=== PATIENT | male | born 1980 | race Caucasian/White ===

== ENCOUNTER 2018-08-21 14:25 | Emergency (ER) | payer MEDICAID, OTHER ==
[2018-08-21] MEDS ORDERED: Sodium Chloride 0.9% 1000 ML 1,000 ML IV STA (16:00)
[2018-08-21] MEDS ORDERED: TORAdol 30 mg Injection IV ONE (16:00)
--- NOTE | 2018-08-21 16:04 | ERPHSYRPT ---
- History of Present Illness Time Seen by Provider: 08/21/18 15:55 Historian: patient Exam Limitations: no limitations Patient Subjective Stated Complaint: STATES STARTED HAVING PAIN IN RIGHT LOWER BACK RADIATING AROUND TO ABD. 8/10 IN PAIN, SHARP CONSTANT PAIN. BOWEL MOVEMENTS NORMAL LAST 08/20/18, NO CHANGES IF URINE. pt states he called Dr Wells ' office and they told him to get checked out in the ER Triage Nursing Assessment: pt c/o severe back pain in right lower back radiating to abdomen. A/O, skin warm and dry, denies injury to back. denies urinary or bowel diff. appetite adequate. Physician History: 38-year-old white male arrives with complaint of pain in his right flank described as sharp severe symptoms since 10:30 this morning. Patient without nausea vomiting the patient without any urinary symptoms. Past medical history negative. Past surgical history negative Timing/Duration: today Activities at Onset: none Quality: sharpness Abdominal Pain Onset Location: RUQ, flank (right flank) Pain Radiation: no radiation Associated Symptoms: back (right flank pain) Previous symptoms: no prior history Allergies/Adverse Reactions: No Known Drug Allergies Allergy (Verified 03/01/16 15:45) Hx Tetanus, Diphtheria Vaccination/Date Given: Yes Hx Influenza Vaccination/Date Given: No Hx Pneumococcal Vaccination/Date Given: No Immunizations Up to Date: Yes - Review of Systems Constitutional: No Fever, No Chills Eyes: No Symptoms Ears, Nose, & Throat: No Symptoms Respiratory: No Cough, No Dyspnea Cardiac: No Chest Pain, No Edema, No Syncope Abdominal/Gastrointestinal: No Abdominal Pain, No Nausea, No Vomiting, No Diarrhea Genitourinary Symptoms: Flank Pain (right flank pain) Musculoskeletal: No Back Pain, No Neck Pain Skin: No Rash Neurological: No Dizziness, No Focal Weakness, No Sensory Changes Psychological: No Symptoms Endocrine: No Symptoms All Other Systems: Reviewed and Negative - Past Medical History Pertinent Past Medical History: Yes Neurological History: No Pertinent History ENT History: No Pertinent History Cardiac History: No Pertinent History Respiratory History: No Pertinent History Endocrine Medical History: No Pertinent History Musculoskeletal History: No Pertinent History GI Medical History: No Pertinent History History: No Pertinent History Psycho-Social History: Depression Male Reproductive Disorders: No Pertinent History - Past Surgical History Past Surgical History: No Neuro Surgical History: No Pertinent History Cardiac: No Pertinent History Respiratory: No Pertinent History Gastrointestinal: No Pertinent History Genitourinary: No Pertinent History Musculoskeletal: No Pertinent History Male Surgical History: No Pertinent History - Social History Smoking Status: Current every day smoker How long have you smoked: 24 Exposure to second hand smoke: Yes Drug Use: none Patient Lives Alone: No - Nursing Vital Signs Nursing Vital Signs: Initial Vital Signs Temperature 97.4 F 08/21/18 14:25 Pulse Rate 65 08/21/18 14:25 Respiratory Rate 18 08/21/18 14:25 Blood Pressure 116/79 08/21/18 14:25 O2 Sat by Pulse Oximetry 98 08/21/18 14:25 Pain Scale Pain Intensity [] 8 Pain Intensity 6 - Physical Exam General Appearance: no apparent distress, alert Eye Exam: PERRL/EOMI, eyes nml inspection Ears, Nose, Throat Exam: normal ENT inspection, pharynx normal, moist mucous membranes Neck Exam: normal inspection, non-tender, supple, full range of motion Respiratory Exam: normal breath sounds, lungs clear, No respiratory distress Cardiovascular Exam: regular rate/rhythm ( admitted in her hit her), normal heart sounds, capillary refill <2 sec Gastrointestinal/Abdomen Exam: soft, No tenderness, No mass Back Exam: normal inspection, normal range of motion, No CVA tenderness, No vertebral tenderness Extremity Exam: normal inspection, normal range of motion, pelvis stable Neurologic Exam: alert, oriented x 3, cooperative, 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 Kidneys appear of normal size and revealed no definite mass, hydronephrosis, or renal calculi. No evidence of hydroureter or ureteral calculi. No obstructive uropathy is seen. The urinary bladder is only minimally distended but no calcification is seen within it to. The appendix appears unremarkable. 3. Some mild concentric distal thoracic esophageal wall thickening. Consider GERD or esophagitis.or. Mild scattered colonic stool retention seen without evidence of bowel obstruction no free air or fluid is seen.) Ordered Tests: Active Orders 24 hr Category Date Time Status IV Insertion STAT Care 08/21/18 16:00 Active ABDOMEN AND PELVIS W/0 CONTRAS [CT] Stat Exams 08/21/18 16:01 Completed AMYLASE Stat Lab 08/21/18 16:14 Completed CBC W DIFF Stat Lab 08/21/18 16:14 Completed CMP Stat Lab 08/21/18 16:14 Completed LIPASE Stat Lab 08/21/18 16:14 Completed UA W/RFX UR CULTURE Stat Lab 08/21/18 16:15 Completed Medication Summary Discontinued Medications Generic Name Dose Route Start Last Admin Trade Name Freq PRN Reason Stop Dose Admin Sodium Chloride 1,000 mls @ 999 mls/hr 08/21/18 16:00 08/21/18 17:32 Sodium Chloride 0.9% 1000 Ml IV 08/21/18 17:00 Infused .Q1H1M STA Infusion Sodium Chloride Confirm 08/21/18 16:28 Sodium Chloride 0.9% 1000 Ml Administered 08/21/18 16:29 Dose 1,000 mls @ ud .ROUTE .STK-MED ONE Ketorolac Tromethamine 30 mg 08/21/18 16:00 08/21/18 16:32 Toradol 30 Mg Injection IV 08/21/18 16:01 30 mg STAT ONE Administration Ketorolac Tromethamine Confirm 08/21/18 16:28 Toradol 30 Mg Injection Administered 08/21/18 16:29 Dose 30 mg .ROUTE .STK-MED ONE Lab/Rad Data: Laboratory Result Diagrams 08/21/18 16:14 08/21/18 16:14 Laboratory Results 08/21/18 08/21/18 08/21/18 Range/Units 16:15 16:14 16:14 WBC 6.8 (4.0-10.5) K/mm3 RBC 4.69 (4.1-5.6) M/mm3 Hgb 14.8 (12.5-18.0) gm/dl Hct 43.9 (42-50) % MCV 93.6 (78-100) fl MCH 31.6 (26-32) pg MCHC 33.7 (32-36) g/dl RDW 13.2 (11.5-14.0) % Plt Count 188 (150-450) K/mm3 MPV 11.2 H (6-9.5) fl Gran % 51.6 (36.0-66.0) % Eos # (Auto) 0.31 (0-0.5) Absolute Lymphs (auto) 2.49 (1.0-4.6) Absolute Monos (auto) 0.43 (0.0-1.3) Lymphocytes % 36.8 (24.0-44.0) % Monocytes % 6.4 (0.0-12.0) % Eosinophils % 4.6 (0.00-5.0) % Basophils % 0.6 (0.0-0.4) % Absolute Granulocytes 3.50 (1.4-6.9) Basophils # 0.04 (0-0.4) Sodium 139 (137-145) mmol/L Potassium 4.1 (3.5-5.1) mmol/L Chloride 104 (98-107) mmol/L Carbon Dioxide 30 (22-30) mmol/L Anion Gap 9.4 (5-15) MEQ/L BUN 16 (9-20) mg/dL Creatinine 1.00 (0.66-1.25) mg/dL Estimated GFR > 60.0 ML/MIN Glucose 88 (74-106) mg/dL Calcium 9.5 (8.4-10.2) mg/dL Total Bilirubin 0.30 (0.2-1.3) mg/dL AST 24 (17-59) U/L ALT 23 (0-50) U/L Alkaline Phosphatase 82 (38-126) U/L Serum Total Protein 7.3 (6.3-8.2) g/dL Albumin 4.0 (3.5-5.0) g/dL Amylase 71 (30-110) U/L Lipase 33 (23-300) U/L Urine Color YELLOW (YELLOW) Urine Appearance CLEAR (CLEAR) Urine pH 5.0 (5-6) Ur Specific [place] 1.023 (1.005-1.025) Urine Protein NEGATIVE (Negative) Urine Ketones NEGATIVE (NEGATIVE) Urine Blood NEGATIVE (0-5) Tyler/ul Urine Nitrite NEGATIVE (NEGATIVE) Urine Bilirubin NEGATIVE (NEGATIVE) Urine Urobilinogen NEGATIVE (0-1) mg/dL Ur Leukocyte Esterase NEGATIVE (NEGATIVE) Urine WBC (Auto) 3-5 (0-5) /HPF Urine RBC (Auto) NONE (0-2) /HPF U Epithel Cells (Auto) NONE (FEW) /HPF Urine Bacteria (Auto) NONE (NEGATIVE) /HPF Urine Mucus (Auto) SLIGHT (NEGATIVE) /HPF Urine Culture Reflexed NO (NO) Urine Glucose NEGATIVE (NEGATIVE) mg/dL - Progress Progress: improved Progress Note: 08/21/18 17:4 Patient given Toradol IV, IV normal saline. Patient continue to complain of pain in her right flank right upper quadrant. CT of the abdomen and pelvis was obtained. Impression 1. Kidneys are of normal size and revealed no definite mass, hydronephrosis or renal calculi. There are no evidence of hydroureter or ureteral calculi, obstructive uropathy is seen the urinary bladder is only minimally distended but no calcification is seen with a 2. The appendix appears unremarkable, there is some mild concentric distal thoracic esophageal wall thickening consider GERD or esophagitis. There is mild scattered colonic stool retention without evidence of bowel obstruction no free air or fluid is seen Patient states that he did not get much relief with Toradol Will give patient [place] 5 325 2 tablets orally. And send patient home. Patient to drink plenty of fluids clear fluids only 24-48 hours if abdominal pain. Will write for a small amount of [place] patient may also take Motrin as needed for pain. Patient followup with his family symptoms are worse, no better in 48 hours or, or persist longer than one week. . - Departure Departure Disposition: Home Clinical Impression: Right flank pain, Right upper quadrant abdominal pain Condition: Fair Critical Care Time: No Referrals: EMERITA WELLS MD [Primary Care Provider] - Additional Instructions: Return home. [place] as prescribed. Advil every 6 hours as needed for pain as well. Clear fluids only 24-48 hours if abdominal pain, plenty of fluids. Followup with your family symptoms are worse, no better in 48 hours, or persist longer than one week. Return for acute distress or for severe symptoms. Prescriptions: Hydrocodone/APAP 5-325 Tab^^^ [[place] 5-325 Tablet^^^] 1 tab PO Q6HPRN PRN #10 tablet MDD 6 PRN Reason: Pain
[2018-08-21 16:21] LABS: BASOPHIL % 0.6 % (0.0-0.4); Basophil (Absolute #) 0.04 (0-0.4); Eosinophil % 4.6 % (0.00-5.0); Eosinophil (Absolute #) 0.31 (0-0.5); Granulocytes % 51.6 % (36.0-66.0); Hematocrit 43.9 % (42-50); Hemoglobin 14.8 gm/dl (12.5-18.0); Lymphocyte (Absolute #) 2.49 (1.0-4.6); Lymphocytes % 36.8 % (24.0-44.0); Mean Cell Volume 93.6 fl (78-100); Mean Corpuscular Hemoglobin 31.6 pg (26-32); Mean Corpuscular Hgb Concent. 33.7 g/dl (32-36); Mean Platelet Volume 11.2 fl (6-9.5); Monocyte (Absolute #) 0.43 (0.0-1.3); Monocytes % 6.4 % (0.0-12.0); Platelet Count 188 K/mm3 (150-450); Red Blood Count 4.69 M/mm3 (4.1-5.6); Red Cell Distribution Width 13.2 % (11.5-14.0); White Blood Count 6.8 K/mm3 (4.0-10.5)
[2018-08-21 16:26] LABS: Appearance CLEAR (CLEAR); Bilirubin NEGATIVE (NEGATIVE); Blood NEGATIVE Ery/ul (0-5); Glucose NEGATIVE (NEGATIVE); Ketones NEGATIVE (NEGATIVE); Leukocyte Esterase NEGATIVE (NEGATIVE); Mucus SLIGHT /HPF (NEGATIVE); Nitrite NEGATIVE (NEGATIVE); Protein,Urine Dip NEGATIVE (Negative); Specific Gravity 1.023 (1.005-1.025); Urobilinogen NEGATIVE mg/dL (0-1)
[2018-08-21] MEDS ORDERED: TORAdol 30 mg Injection ONE (16:28)
[2018-08-21] MEDS ORDERED: Sodium Chloride 0.9% 1000 ML 1,000 ML ONE (16:28)
[2018-08-21 16:32] LABS: ALKALINE PHOSPHATASE 82 U/L (38-126); AMYLASE 71 U/L (30-110); ANION GAP 9.4 MEQ/L (5-15); BLOOD UREA NITROGEN 16 mg/dL (9-20); CHLORIDE 104 mmol/L (98-107); Calcium 9.5 mg/dL (8.4-10.2); Carbon Dioxide 30 mmol/L (22-30); Glucose 88 mg/dL (74-106); LIPASE 33 U/L (23-300); Potassium 4.1 mmol/L (3.5-5.1); SGOT/AST 24 U/L (17-59); SGPT/ALT 23 U/L (0-50); SODIUM 139 mmol/L (137-145); Total Protein 7.3 g/dL (6.3-8.2)
--- NOTE | 2018-08-21 17:06 | XRAY ---
Exam: CT of the abdomen and pelvis without IV contrast from 08/21/2018. CTDI: 20.63 Comparison: CT of the abdomen and pelvis without IV contrast from 06/06/2014. Indication: 38-year-old male with right flank pain since this morning. Technique: Non-IV contrast axial images were obtained through the abdomen and pelvis. Reconstructed coronal and sagittal images were created and reviewed. Findings: The lung bases reveal minimal nonspecific posterior dependent atelectatic changes within both posterior lung sulci. Otherwise, the lung bases appear clear. Incidentally, there appears to be some mild concentric thickening of the distal thoracic esophageal wall. For example, see axial images #8 through #11. Correlate clinically regarding esophagitis or GERD. I do not see a definite hiatal hernia. Assessment of the solid organs is mildly limited without the use of IV contrast. However, this exam was performed because of right flank pain. The kidneys appear of normal size and shape. No definite renal mass, hydronephrosis, or renal calculi are seen. No perinephric stranding is seen. The ureters appear of normal diameter and reveal no ureterolith. The urinary bladder is only minimally distended, but reveals no calcification within it. The liver, spleen, pancreas, and adrenal glands appear unremarkable. The gallbladder is distended and reveals no definite wall thickening or dense calcification within it. No intrahepatic biliary duct distention is seen. The abdominal aorta is of normal diameter without aneurysm. No abnormal retroperitoneal lymphadenopathy is seen. There is no free intraperitoneal air or ventral abdominal wall hernia. The appendix within the right lower quadrant appears unremarkable without surrounding inflammation. No abnormal bowel distention or bowel obstruction is seen. Some scattered stool is seen throughout the colon. No pelvic mass or abnormal pelvic lymphadenopathy is seen. The seminal vesicles appear unremarkable. Prostate gland contains a minimal calcification within it. Some small postinflammatory lymph nodes are seen within each groin. The skeleton reveals no acute fracture or other aggressive bone lesion. Impression: 1. The kidneys appear of normal size and reveal no definite mass, hydronephrosis, or renal calculi. Furthermore, I see no evidence of hydroureter or ureteral calculi. No obstructive uropathy is seen. The urinary bladder is only minimally distended, but no calcification is seen within it. 2. The appendix appears unremarkable. 3. I see some mild concentric distal thoracic esophageal wall thickening. Consider GERD or esophagitis. See axial images #8 through #11 of series #3. 4. Mild scattered colonic stool retention is seen without evidence of bowel obstruction. No free air or free fluid is seen.
[2018-08-21] MEDS ORDERED: NORCO 5/325 MG PO ONE (17:46)
[2018-08-21] MEDS ORDERED: NORCO 5/325 MG ONE (17:50)
[2018-08-21 17:53] VITALS: O2SAT 98
[2018-08-21 17:54] VITALS: BP 117/88; PULSE 60
== END 2018-08-21 18:10 | disposition home or self-care (01) ==
LOC: ED 14:25
DX: R10.11 Right upper quadrant pain (principal)
CPT/HCPCS: 36415; 74176; 80053; 81001; 82150; 83690; 85025; 96360; 96374; 99284; J1885; A9270-GY

== ENCOUNTER 2018-12-20 00:59 | Emergency (ER) | payer MEDICAID ==
--- NOTE | 2018-12-20 01:49 | ERPHSYRPT ---
- History of Present Illness Time Seen by Provider: 12/20/18 01:20 Source: patient, family Exam Limitations: no limitations Patient Subjective Stated Complaint: pt c/o rt elbow pain that has been going on x2 weeks, c/o rt elbow being sore, can't stand any pressure on it Triage Nursing Assessment: pt c/o rt elbow pain x2 weeks. No redness or edema noted to area. 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 Pulses present, pt able to move it without diff. Lungs clear, heart tones reg, abd soft with active bs x4 quad, non-tender. Physician History: 38 y/o right handed white male presents with inner right elbow pain for 2 weeks. no trauma. 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 this past weekend, pt was off work but pain did not improve. pt has an appt to see dr. hernandes tomorrow. 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) Quality: aching, burning Severity of Pain-Max: moderate Severity of Pain-Current: moderate Extremities Pain Location: elbow: right Modifying Factors: Improves With: movement Associated Symptoms: none Allergies/Adverse Reactions: No Known Drug Allergies Allergy (Verified 03/01/16 15:45) Hx Tetanus, Diphtheria Vaccination/Date Given: Yes Hx Influenza Vaccination/Date Given: No Hx Pneumococcal Vaccination/Date Given: No Immunizations Up to Date: Yes - Review of Systems Constitutional: No Symptoms Eyes: No Symptoms Ears, Nose, & Throat: No Symptoms Respiratory: No Symptoms Cardiac: No Symptoms Abdominal/Gastrointestinal: No Symptoms Genitourinary Symptoms: No Symptoms Musculoskeletal: Injury, Joint Pain (right elbow) Skin: No Symptoms Neurological: No Symptoms Psychological: No Symptoms Endocrine: No Symptoms Hematologic/Lymphatic: No Symptoms Immunological/Allergic: No Symptoms All Other Systems: Reviewed and Negative - Past Medical History Pertinent Past Medical History: Yes Neurological History: No Pertinent History ENT History: No Pertinent History Cardiac History: No Pertinent History Respiratory History: No Pertinent History Endocrine Medical History: No Pertinent History Musculoskeletal History: Fractures GI Medical History: No Pertinent History History: No Pertinent History Psycho-Social History: No Pertinent History Male Reproductive Disorders: No Pertinent History Other Medical History: fx rt wrist and forearm, casted - Past Surgical History Past Surgical History: No Neuro Surgical History: No Pertinent History Cardiac: No Pertinent History Respiratory: No Pertinent History Gastrointestinal: No Pertinent History Genitourinary: No Pertinent History Musculoskeletal: No Pertinent History Male Surgical History: No Pertinent History - Social History Smoking Status: Current every day smoker How long have you smoked: 25 yrs Exposure to second hand smoke: Yes Drug Use: none Patient Lives Alone: No - Nursing Vital Signs Nursing Vital Signs: Initial Vital Signs Temperature 97.7 F 12/20/18 01:04 Pulse Rate 65 12/20/18 01:04 Respiratory Rate 20 12/20/18 01:04 Blood Pressure 134/84 12/20/18 01:04 O2 Sat by Pulse Oximetry 97 12/20/18 01:04 Pain Scale Pain Intensity 10 - Physical Exam General Appearance: mild distress, alert, anxiety Eyes, Ears, Nose, Throat Exam: normal ENT inspection, moist mucous membranes Neck Exam: normal inspection, non-tender, supple, full range of motion Cardiovascular/Respiratory Exam: chest non-tender Abdominal Exam: non-tender Back Exam: normal inspection, normal range of motion, No CVA tenderness, No vertebral tenderness Shoulder Exam: normal inspection, non-tender, no evidence of injury, normal ROM Elbow/Forearm Exam: normal inspection, no evidence of injury, normal ROM, bone tenderness (right), soft tissue tenderness Wrist Exam: normal inspection, non-tender, no evidence of injury, normal ROM Hand Exam: normal inspection, non-tender, no evidence of injury, normal ROM Neuro/Tendon Exam: normal sensation, normal motor functions, normal tendon functions, responds to pain, no evidence tendon injury Mental Status Exam: alert, oriented x 3, cooperative Skin Exam: normal color, warm, dry SpO2 Interpretation: normal SpO2: 97 O2 Delivery: Room Air - Course Nursing assessment & vital signs reviewed: Yes Ordered Tests: Active Orders 24 hr Category Date Time Status ELBOW (MINIMUM 3 VIEWS) Stat Exams 12/20/18 Ordered - Progress Progress: unchanged Progress Note: 12/20/18 01:49 xray right elbow no acute fx or dislocation Counseled pt/family regarding: diagnosis, need for follow-up, rad results - Departure Departure Disposition: Home Clinical Impression: Right elbow pain Condition: Stable Critical Care Time: No Referrals: EMERITA HERNANDES MD [Primary Care Provider] - Additional Instructions: ice pack 3 times daily for 3 days. stop tree trimming/cutting until after seen by dr. hernandes Prescriptions: Prednisone 10 mg [Deltasone 10 mg] 10 mg PO TID #12 tablet Tramadol HCl 50 mg [Ultram 50 mg] 50 mg PO TID PRN #15 tablet PRN Reason: Pain
[2018-12-20] MEDS ORDERED: PERCOCET TABLET 5/325MG PO STA (01:52)
[2018-12-20] MEDS ORDERED: DELTASONE 10 MG PO ONE (01:53)
[2018-12-20] MEDS ORDERED: DELTASONE 20 MG ONE (01:55)
[2018-12-20] MEDS ORDERED: PERCOCET TABLET 5/325MG ONE (01:55)
[2018-12-20 02:02] VITALS: BP 123/79; PULSE 60; O2SAT 98
--- NOTE | 2018-12-20 08:37 | XRAY ---
Indication: Pain. Overuse injury. Comparison: None 3 views of the right elbow obtained. No bony, articular, or soft tissue abnormalities.
== END 2018-12-20 02:15 | disposition home or self-care (01) ==
LOC: ED 00:59
DX: M25.521 Pain in right elbow (principal)
CPT/HCPCS: 73080; 99283; A9270-GY

== ENCOUNTER 2020-12-29 23:20 | Emergency (ER) | payer SELFPAY ==
[2020-12-29] MEDS ORDERED: TORAdol 30 mg Injection IM ONE (23:38)
[2020-12-29] MEDS ORDERED: Augmentin 875-125 Tablet PO STA (23:39)
[2020-12-29 23:40] VITALS: O2SAT 98
[2020-12-29] MEDS ORDERED: Augmentin 875-125 Tablet ONE (23:44)
[2020-12-29] MEDS ORDERED: TORAdol 30 mg Injection ONE (23:44)
[2020-12-30] MEDS ORDERED: NORCO 5/325 MG PO ONE (00:20)
--- NOTE | 2020-12-30 00:20 | ERPHSYRPT ---
- History of Present Illness Time Seen by Provider: 12/29/20 23:45 Source: patient Exam Limitations: no limitations Patient Subjective Stated Complaint: pt states "I was pushing down on my tooth and this sharp pain shot up my face." Triage Nursing Assessment: pt ambulated into the er; pt is axo x4; c/o toothache; pt states 5/10 to left lower jaw; pt states that pain radiates from jaw to head; pt has cavity to left lower back tooth; tooth is broken; hypertension Physician History: Patient is a 40-year-old male presents to our ED with complaints of dental pain. Patient states that he has a carious tooth left lower jaw. Patient states he was pushing on his tooth today and felt a sharp pain shoot into the left side of his head. Pain rated 5 out of 10. Pain is reproduced with percussion and palpation to the involved tooth. Patient has tried many [id number] remedies without resolution of pain. Symptoms are mild to moderate in intensity no trauma. No fever. No nausea or vomiting. Patient is otherwise healthy. Patient states that he has found a dentist at the [facility]. He will follow-up with his dentist in [place] tomorrow morning. Patient voices no other complaints at this time. Timing/Duration: today Severity: moderate Modifying Factors: Improves With: other (Percussion palpation and mastication in volving the left lower jaw molar) Associated Symptoms: denies symptoms Allergies/Adverse Reactions: No Known Drug Allergies Allergy (Verified 12/29/20 23:29) Hx Tetanus, Diphtheria Vaccination/Date Given: Yes Hx Influenza Vaccination/Date Given: No Hx Pneumococcal Vaccination/Date Given: No Travel Risk - International Travel Have you traveled outside of the country in past 3 weeks: No - Coronavirus Screening Are you exhibiting any of the following symptoms?: No Close contact with a COVID-19 positive Pt in past 14-21 Days: No - Vaccine Status Have you recieved a Covid-19 vaccination: No - Review of Systems Constitutional: No Symptoms, No Fever, No Chills Eyes: No Symptoms Ears, Nose, & Throat: No Symptoms Respiratory: No Symptoms, No Cough, No Dyspnea Cardiac: No Symptoms, No Chest Pain, No Edema, No Syncope Abdominal/Gastrointestinal: No Symptoms, No Abdominal Pain, No Nausea, No Vomiting, No Diarrhea Genitourinary Symptoms: No Symptoms, No Dysuria Musculoskeletal: No Symptoms, No Back Pain, No Neck Pain Skin: No Symptoms, No Rash Neurological: No Symptoms, No Dizziness, No Focal Weakness, No Sensory Changes Psychological: No Symptoms Endocrine: No Symptoms Hematologic/Lymphatic: No Symptoms Immunological/Allergic: No Symptoms All Other Systems: Reviewed and Negative - Past Medical History Pertinent Past Medical History: Yes Neurological History: No Pertinent History ENT History: No Pertinent History Cardiac History: No Pertinent History Respiratory History: No Pertinent History Endocrine Medical History: No Pertinent History Musculoskeletal History: Fractures GI Medical History: No Pertinent History History: No Pertinent History Psycho-Social History: Depression Male Reproductive Disorders: No Pertinent History Other Medical History: fx rt wrist and forearm, casted - Past Surgical History Past Surgical History: No Neuro Surgical History: No Pertinent History Cardiac: No Pertinent History Respiratory: No Pertinent History Gastrointestinal: No Pertinent History Genitourinary: No Pertinent History Musculoskeletal: No Pertinent History Male Surgical History: No Pertinent History - Social History Smoking Status: Smoker, status unknown How long have you smoked: 25 yrs Exposure to second hand smoke: Yes Drug Use: none Patient Lives Alone: No - Nursing Vital Signs Nursing Vital Signs: Initial Vital Signs Temperature 98.9 F 12/29/20 23:29 Pulse Rate 92 H 12/29/20 23:29 Respiratory Rate 18 12/29/20 23:29 Blood Pressure 158/98 12/29/20 23:29 O2 Sat by Pulse Oximetry 98 12/29/20 23:29 Pain Scale Pain Intensity 5 - Physical Exam General Appearance: no apparent distress, alert Eye Exam: PERRL/EOMI, eyes nml inspection Ears, Nose, Throat Exam: normal ENT inspection, TMs normal, pharynx normal, moist mucous membranes, other (Tooth #17 is carious. There is exposed pulp. There is swelling at the duration gingiva. It appears patient is developing a dental abscess at this location. Negative for Mike's angina. No sublingual masses. Uvula midline. No intraoral lesions. Patent airway. No trismus) Neck Exam: normal inspection, non-tender, supple, full range of motion Respiratory Exam: normal breath sounds, lungs clear, airway intact, No respiratory distress Cardiovascular Exam: regular rate/rhythm, normal heart sounds, normal peripheral pulses Gastrointestinal/Abdomen Exam: soft, normal bowel sounds, No tenderness, No mass Back Exam: normal inspection, normal range of motion, No CVA tenderness, No vertebral tenderness Extremity Exam: normal inspection, normal range of motion, pelvis stable Neurologic Exam: alert, oriented x 3, cooperative, normal mood/affect, sensation nml, No motor deficits Skin Exam: normal color, warm, dry, No rash Lymphatic Exam: No adenopathy SpO2 Interpretation: normal SpO2: 98 O2 Delivery: Room Air - Course Nursing assessment & vital signs reviewed: Yes Ordered Tests: Medication Summary Discontinued Medications Generic Name Dose Route Start Last Admin Trade Name Norman PRN Reason Stop Dose Admin Hydrocodone Bitart/Acetaminophen 4 tab 12/30/20 00:20 12/30/20 00:23 [place] 5/325 Mg PO 12/30/20 00:21 4 tab SENT HOME W/ PATIENT ONE Administration Hydrocodone Bitart/Acetaminophen Confirm 12/30/20 00:22 [place] 5/325 Mg Administered 12/30/20 00:23 Dose 4 tab .ROUTE .STK-MED ONE Amoxicillin/Clavulanate Potassium 875 mg 12/29/20 23:39 12/29/20 23:47 Augmentin 875-125 Tablet PO 12/29/20 23:40 875 mg ONCE STA Administration Amoxicillin/Clavulanate Potassium Confirm 12/29/20 23:44 Augmentin 875-125 Tablet Administered 12/29/20 23:45 Dose 875 mg .ROUTE .STK-MED ONE Ketorolac Tromethamine 60 mg 12/29/20 23:38 12/29/20 23:47 Toradol 30 Mg Injection IM 12/29/20 23:39 60 mg STAT ONE Administration Ketorolac Tromethamine Confirm 12/29/20 23:44 Toradol 30 Mg Injection Administered 12/29/20 23:45 Dose 60 mg .ROUTE .STK-MED ONE - Progress Progress: improved Progress Note: Patient received a dose of Toradol and Augmentin in our ED. A prescription for Toradol and Augmentin was forwarded to patient's pharmacy. Patient also recei marc 4 tabs of [place] fives. Patient will be following up at [facility] in [place] tomorrow morning. Patient states is ready for discharge. He voices no other complaints concerns at this time. No indication for further work-up. Will discharge home. Portions of this note were created with voice recognition technology. There may be grammatical, spelling, punctuation or sound alike errors 12/30/20 00:36 Counseled pt/family regarding: diagnosis, need for follow-up - Departure Departure Disposition: Home Clinical Impression: Tooth caries, Pain, dental, Dental abscess Condition: Stable Critical Care Time: No Referrals: DOCTOR,NO FAMILY [Primary Care Provider] - EVELIN CURRAN MD [ACTIVE STAFF] - Instructions: Tooth Decay, Adult, Tooth Abscess (DC) Additional Instructions: Discharge/Care Plan RANULFO RODRÍGUEZ JR was seen on 12/30/20 in the Emergency Room. The patient was counseled regarding Diagnosis,Lab results, Imaging studies, need for follow up and when to return to the Emergency Room. Prescriptions given: Discharge Note I have spoken with the patient and/or caregivers. I have explained the patient's condition, diagnosis and treatment plan based on the information available to me at this time. I have answered the patient's and/or caregiver's questions and addressed any concerns. The patient and/or caregivers have as good understanding of the patient's diagnosis, condition and treatment plan as can be expected at this point. The vital signs have been stable. The patient's condition is stable and appropriate for discharge from the emergency department. The patient will pursue further outpatient evaluation with the primary care physician or other designated or consulting physician as outlined in the discharge instructions. The patient and/or caregivers are agreeable to this plan of care and follow-up instructions have been explained in detail. The patient and/or caregivers have received these instruction. The patient/and or caregivers are aware that any significant change in condition or worsening of symptoms should prompt an immediate return to this or the closest emergency department or call 911. Prescriptions: Amox Tr/Potass Clav. 875 mg [Augmentin 875-125 Tablet] 1 tab PO BID 7 Days #14 tablet Ketorolac Tromethamine [Toradol] 10 mg PO TID 5 Days #15 tablet
[2020-12-30] MEDS ORDERED: NORCO 5/325 MG ONE (00:22)
[2020-12-30 00:24] VITALS: BP 152/102; PULSE 81
== END 2020-12-30 00:30 | disposition home or self-care (01) ==
LOC: ED 23:20
DX: K02.9 Dental caries, unspecified (principal); K04.7 Periapical abscess without sinus
CPT/HCPCS: 96372; 99283; J1885; A9270-GY

== ENCOUNTER 2021-09-13 10:22 | Emergency (ER) | payer SELFPAY ==
[2021-09-13 10:35] VITALS: O2SAT 99
--- NOTE | 2021-09-13 10:36 | ERPHSYRPT ---
- History of Present Illness Time Seen by Provider: 09/13/21 10:36 Historian: patient Exam Limitations: no limitations Patient Subjective Stated Complaint: to er c/o left flank pain. 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 pt denies any diff urinating. Reports nausea present though no vomiting Physician History: This is a 41-year-old white male who has no known history of nephrolithiasis or ureteral stones presents with sudden onset of left flank pain which radiates to the left lower back and left groin area. He states the pain is severe and has not let up. He has never had anything like this before. He has had nausea but no vomiting. He denies chest pain and he denies shortness of breath. He has had no fevers or chills. Timing/Duration: yesterday, day(s) (1), worse Activities at Onset: none Quality: sharpness, stabbing Abdominal Pain Onset Location: flank (Left flank) Pain Radiation: groin (Left), back (Left lower back) Severity of Pain-Max: moderate Severity of Pain-Current: moderate Modifying Factors: Improves With: nothing Associated Symptoms: loss of appetite, nausea, No chest pain, No fever/chills, No neck pain, No shortness of breath, No vomiting Previous symptoms: no prior history Allergies/Adverse Reactions: No Known Drug Allergies Allergy (Verified 12/29/20 23:29) Hx Tetanus, Diphtheria Vaccination/Date Given: Yes Hx Influenza Vaccination/Date Given: No Hx Pneumococcal Vaccination/Date Given: No Travel Risk - International Travel Have you traveled outside of the country in past 3 weeks: No - Coronavirus Screening Are you exhibiting any of the following symptoms?: No Close contact with a COVID-19 positive Pt in past 14-21 Days: No - Vaccine Status Have you recieved a Covid-19 vaccination: No - Review of Systems Constitutional: No Symptoms Eyes: No Symptoms Ears, Nose, & Throat: No Symptoms Respiratory: No Symptoms Cardiac: No Symptoms Abdominal/Gastrointestinal: Nausea, No Abdominal Pain, No Vomiting, No Diarrhea, No Constipation Genitourinary Symptoms: Flank Pain (Left) Musculoskeletal: No Symptoms Skin: No Symptoms Neurological: No Symptoms Psychological: No Symptoms Endocrine: No Symptoms Hematologic/Lymphatic: No Symptoms Immunological/Allergic: No Symptoms - Past Medical History Pertinent Past Medical History: Yes Neurological History: No Pertinent History ENT History: No Pertinent History Cardiac History: No Pertinent History Respiratory History: No Pertinent History Endocrine Medical History: No Pertinent History Musculoskeletal History: Fractures GI Medical History: No Pertinent History History: No Pertinent History Psycho-Social History: Depression Male Reproductive Disorders: No Pertinent History Other Medical History: fx rt wrist and forearm, casted - Past Surgical History Past Surgical History: No Neuro Surgical History: No Pertinent History Cardiac: No Pertinent History Respiratory: No Pertinent History Gastrointestinal: No Pertinent History Genitourinary: No Pertinent History Musculoskeletal: No Pertinent History Male Surgical History: No Pertinent History - Social History Smoking Status: Smoker, status unknown How long have you smoked: 25 yrs Exposure to second hand smoke: Yes Drug Use: none Patient Lives Alone: No - Nursing Vital Signs Nursing Vital Signs: Initial Vital Signs Temperature 97.9 F 09/13/21 10:30 Pulse Rate 77 09/13/21 10:30 Respiratory Rate 16 09/13/21 10:30 Blood Pressure 133/90 09/13/21 10:30 O2 Sat by Pulse Oximetry 99 09/13/21 10:30 Pain Scale Pain Intensity 0 - Physical Exam General Appearance: no apparent distress, alert, anxiety Eye Exam: PERRL/EOMI, eyes nml inspection Ears, Nose, Throat Exam: normal ENT inspection, moist mucous membranes Neck Exam: normal inspection, non-tender, supple, full range of motion Respiratory Exam: normal breath sounds, lungs clear, airway intact, No chest tenderness, No respiratory distress Cardiovascular Exam: regular rate/rhythm, normal heart sounds, normal peripheral pulses Gastrointestinal/Abdomen Exam: soft, normal bowel sounds, No tenderness Rectal Exam: not done Back Exam: normal inspection, normal range of motion, CVA tenderness (Left), No vertebral tenderness Extremity Exam: normal inspection, normal range of motion, pelvis stable Neurologic Exam: alert, oriented x 3, cooperative, coke inspector II-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 nml as tested, normal mood/affect, nml cerebellar function, nml station & gait, sensation nml Skin Exam: normal color, warm, dry Lymphatic Exam: No adenopathy SpO2 Interpretation: normal SpO2: 99 O2 Delivery: Room Air - Course Nursing assessment & vital signs reviewed: Yes Ordered Tests: Active Orders 24 hr Category Date Time Status IV Insertion STAT Care 09/13/21 10:37 Active ABDOMEN AND PELVIS W/0 CONTRAS [CT] Stat Exams 09/13/21 10:37 Completed AMYLASE Stat Lab 09/13/21 10:20 Completed CBC W DIFF Stat Lab 09/13/21 10:20 Completed CMP Stat Lab 09/13/21 10:20 Completed LIPASE Stat Lab 09/13/21 10:20 Completed UA W/RFX CULTURE Stat Lab 09/13/21 11:09 Completed Medication Summary Generic Name Dose Route Start Last Admin Trade Name Freq PRN Reason Stop Dose Admin Sodium Chloride 1,000 mls @ 999 mls/hr 09/13/21 10:37 09/13/21 10:41 Sodium Chloride 0.9% 1000 Ml IV 09/13/21 11:37 999 mls/hr .Q1H1M STA Administration Discontinued Medications Generic Name Dose Route Start Last Admin Trade Name Freq PRN Reason Stop Dose Admin Hydromorphone HCl 1 mg 09/13/21 10:37 09/13/21 10:40 Hydromorphone 1 Mg/1ml Inj 1 Mg/Ml Syringe IV 09/13/21 10:38 1 mg STAT ONE Administration Hydromorphone HCl Confirm 09/13/21 10:37 Hydromorphone 1 Mg/1ml Inj 1 Mg/Ml Syringe Administered 09/13/21 10:38 Dose 1 mg .ROUTE .STK-MED ONE Sodium Chloride Confirm 09/13/21 10:37 Sodium Chloride 0.9% 1000 Ml Administered 09/13/21 10:38 Dose 1,000 mls @ ud .ROUTE .STK-MED ONE Ketorolac Tromethamine 30 mg 09/13/21 10:37 09/13/21 10:41 Ketorolac Tromethamine 30 Mg/Ml Inj IV 09/13/21 10:38 30 mg STAT ONE Administration Ketorolac Tromethamine Confirm 09/13/21 10:37 Ketorolac Tromethamine 30 Mg/Ml Inj Administered 09/13/21 10:38 Dose 30 mg .ROUTE .STK-MED ONE Ondansetron HCl 4 mg 09/13/21 10:37 09/13/21 10:41 Ondansetron Hcl 4 Mg/2 Ml Vial IV 09/13/21 10:38 4 mg STAT ONE Administration Ondansetron HCl Confirm 09/13/21 10:37 Ondansetron Hcl 4 Mg/2 Ml Vial Administered 09/13/21 10:38 Dose 4 mg .ROUTE .K-MED ONE Lab/Rad Data: Laboratory Result Diagrams 09/13/21 10:20 09/13/21 10:20 Laboratory Results 09/13/21 09/13/21 09/13/21 Range/Units 11:09 10:20 10:20 WBC 6.8 (4.0-10.5) x10^3/uL RBC 5.03 (4.1-5.6) x10^6/uL Hgb 15.3 (12.5-18.0) g/dL Hct 44.9 (42-50) % MCV 89.3 (78-100) fL MCH 30.4 (26-32) pg MCHC 34.1 (32-36) g/dL RDW 12.7 (11.5-14.0) % Plt Count 228 (150-450) x10^3/uL MPV 11.3 H (7.5-11.0) fL Gran % 63.3 (36.0-66.0) % Immature Gran % (Auto) 0.1 (0.00-0.4) % Nucleat RBC Rel Count 0.0 (0.00-0.1) % Eos # (Auto) 0.26 (0-0.5) x10^3/uL Immature Gran # (Auto) 0.01 (0.00-0.03) x10^3u/L Absolute Lymphs (auto) 1.76 (1.0-4.6) x10^3/uL Absolute Monos (auto) 0.42 (0.0-1.3) x10^3/uL Absolute Nucleated RBC 0.00 (0.00-0.01) x10^3u/L Lymphocytes % 25.9 (24.0-44.0) % Monocytes % 6.2 (0.0-12.0) % Eosinophils % 3.8 (0.00-5.0) % Basophils % 0.7 (0.0-0.4) % Absolute Granulocytes 4.29 (1.4-6.9) x10^3/uL Basophils # 0.05 (0-0.4) x10^3/uL Sodium 137 (137-145) mmol/L Potassium 3.7 (3.5-5.1) mmol/L Chloride 103 (98-107) mmol/L Carbon Dioxide 24 (22-30) mmol/L Anion Gap 14.3 (5-15) MEQ/L BUN 15 (9-20) mg/dL Creatinine 0.88 (0.66-1.25) mg/dL Estimated GFR > 60.0 ML/MIN Glucose 142 H (74-106) mg/dL Calcium 9.7 (8.4-10.2) mg/dL Total Bilirubin 0.50 (0.2-1.3) mg/dL AST 29 (17-59) U/L ALT 24 (0-50) U/L Alkaline Phosphatase 88 (38-126) U/L Serum Total Protein 7.8 (6.3-8.2) g/dL Albumin 4.3 (3.5-5.0) g/dL Amylase 78 (30-110) U/L Lipase 35 (23-300) U/L Urinalys Dipstick Clnc MAIN LAB Urine Color YELLOW (YELLOW) Urine Appearance CLEAR (CLEAR) Urine pH 5.5 (5-6) Ur Specific Walker <=1.005 (1.005-1.025) POC Urine Protein Conf NEGATIVE (Negative) Urine Ketones NEGATIVE (NEGATIVE) Urine Nitrite NEGATIVE (NEGATIVE) Urine Bilirubin NEGATIVE (NEGATIVE) Urine Urobilinogen 0.2 (0-1) mg/dL Urine Leukocytes NEGATIVE (NEGATIVE) Urine WBC (Auto) 0-2 (0-5) /HPF Urine RBC (Auto) 0-2 (0-2) /HPF U Epithel Cells (Auto) RARE (FEW) /HPF Urine Bacteria (Auto) RARE (NEGATIVE) /HPF Urine RBC NEGATIVE (0-5) Tyler/ul Ur Culture Indicated? NO Urine Glucose NEGATIVE (NEGATIVE) mg/dL - Progress Progress: improved, pain not gone completely, re-examined Progress Note: 09/13/21 11:23 CAT scan of the abdomen and pelvis is negative for any renal calculus or obstr uctive uropathy. In addition, there is distal esophageal circumferential wall thickening concerning for reflux esophagitis. This was present on a CT scan of the abdomen pelvis in 2019. Today, I discussed this finding with him and he needs to follow-up with his primary care physician for further evaluation and management. There is also mild fecal stasis present. Counseled pt/family regarding: lab results, diagnosis, need for follow-up, rad results - Departure Departure Disposition: Home Clinical Impression: Constipation, Reflux esophagitis Condition: Stable Critical Care Time: No Referrals: DOCTOR,NO FAMILY [Primary Care Provider] - Follow up/PCP as directed Additional Instructions: Avoid fatty greasy spicy foods. Avoid nicotine and alcohol. Follow-up with your primary care provider for your further evaluation management of reflux esophagitis. Increase your fluid intake. Use [id number] MiraLAX to help with any constipation issues. Prescriptions: Hydrocodone/APAP 5/325 [Hayes 5/325 mg] 1 each PO Q12H PRN PRN #6 tablet MDD 2 PRN Reason: Pain Famotidine 20 mg [Pepcid 20 MG] 20 mg PO DAILY #10 tablet
[2021-09-13] MEDS ORDERED: Sodium Chloride 0.9% 1000 ML 1,000 ML IV STA (10:37)
[2021-09-13] MEDS ORDERED: Sodium Chloride 0.9% 1000 ML 1,000 ML ONE (10:37)
[2021-09-13] MEDS ORDERED: Hydromorphone 1 mg/ml Injection ONE (10:37)
[2021-09-13] MEDS ORDERED: Zofran 4 MG/2 ML VIAL IV ONE (10:37)
[2021-09-13] MEDS ORDERED: Zofran 4 MG/2 ML VIAL ONE (10:37)
[2021-09-13] MEDS ORDERED: TORAdol 30 mg Injection ONE (10:37)
[2021-09-13] MEDS ORDERED: TORAdol 30 mg Injection IV ONE (10:37)
[2021-09-13] MEDS ORDERED: Hydromorphone 1 mg/ml Injection IV ONE (10:37)
[2021-09-13 10:56] LABS: Absolute Neutrophil Ct (ANC) 4.29 x10^3/uL (1.4-6.9); Basophil (Absolute #) 0.05 x10^3/uL (0-0.4); Eosinophil % 3.8 % (0.00-5.0); Eosinophil (Absolute #) 0.26 x10^3/uL (0-0.5); Hematocrit 44.9 % (42-50); Hemoglobin 15.3 g/dL (12.5-18.0); Lymphocyte (Absolute #) 1.76 x10^3/uL (1.0-4.6); Lymphocytes % 25.9 % (24.0-44.0); Mean Cell Volume 89.3 fL (78-100); Mean Corpuscular Hemoglobin 30.4 pg (26-32); Mean Corpuscular Hgb Concent. 34.1 g/dL (32-36); Mean Platelet Volume 11.3 fL (7.5-11.0); Monocyte (Absolute #) 0.42 x10^3/uL (0.0-1.3); Monocytes % 6.2 % (0.0-12.0); Neutrophil % 63.3 % (36.0-66.0); Platelet Count 228 x10^3/uL (150-450); Red Blood Count 5.03 x10^6/uL (4.1-5.6); Red Cell Distribution Width 12.7 % (11.5-14.0); White Blood Count 6.8 x10^3/uL (4.0-10.5)
[2021-09-13 11:09] LABS: ALBUMIN 4.3 g/dL (3.5-5.0); ALKALINE PHOSPHATASE 88 U/L (38-126); AMYLASE 78 U/L (30-110); ANION GAP 14.3 MEQ/L (5-15); BLOOD UREA NITROGEN 15 mg/dL (9-20); CHLORIDE 103 mmol/L (98-107); Calcium 9.7 mg/dL (8.4-10.2); Carbon Dioxide 24 mmol/L (22-30); Creatinine 1 0.88 mg/dL (0.66-1.25); EST GLOMERULAR FILTRATION RATE > 60.0 ML/MIN; Glucose 142 mg/dL (74-106); LIPASE 35 U/L (23-300); Potassium 3.7 mmol/L (3.5-5.1); SGOT/AST 29 U/L (17-59); SGPT/ALT 24 U/L (0-50); SODIUM 137 mmol/L (137-145); Total Protein 7.8 g/dL (6.3-8.2)
[2021-09-13 11:11] LABS: Appearance CLEAR (CLEAR); Bilirubin NEGATIVE (NEGATIVE); Dipstick done @ ? MAIN LAB; Glucose NEGATIVE (NEGATIVE); Ketones NEGATIVE (NEGATIVE); Nitrite NEGATIVE (NEGATIVE); Ph 5.5 (5-6); Protein,Urine Dip NEGATIVE (Negative); RBC NEGATIVE Ery/ul (0-5); Specific Gravity <=1.005 (1.005-1.025); Urobilinogen 0.2 mg/dL (0-1)
--- NOTE | 2021-09-13 11:12 | XRAY ---
Indication: Left flank pain. Multiple contiguous axial images obtained through the abdomen and pelvis without contrast using renal stone protocol. Comparison: August 21, 2018. Lung bases again demonstrates minimal dependent atelectasis and tiny right base calcified granuloma. No infiltrate or effusion. Heart not enlarged. Distal esophagus again demonstrates circumferential wall thickening concerning for reflux esophagitis. Again no renal calculus or evidence for obstructive uropathy in either system. Stomach is distended with food/fluid. Noncontrasted stomach and bowel loops nonobstructed again with normal appendix. There is again mild diffuse scattered colonic fecal debris greatest in the right hemicolon. No free fluid/air. Remaining liver, gallbladder, pancreas, spleen, adrenal glands, kidneys, ureters, bladder, and aorta are unremarkable for noncontrast exam. Osseous structures intact. No ventral or inguinal hernias. Impression: 1. Continued negative renal calculus or evidence for obstructive uropathy. 2. Again distal esophageal circumferential wall thickening concerning for reflux esophagitis. 3. Again incidental mild diffuse fecal stasis.
[2021-09-13 11:18] LABS: Bacteria RARE /HPF (NEGATIVE); Epithelial Cells RARE /HPF (FEW); RBC 0-2 /HPF (0-2); Urine Cultured Indicated? NO; WBC 0-2 /HPF (0-5)
[2021-09-13 11:58] VITALS: BP 131/86; PULSE 65
[2021-09-13] MEDS ORDERED: PROTONIX 40 MG IV IV ONE ×2 (12:23)
== END 2021-09-13 12:33 | disposition home or self-care (01) ==
LOC: ED 10:22
DX: K59.00 Constipation, unspecified (principal); K21.00 Gastro-esophageal reflux disease with esophagitis, without bleeding; R10.9 Unspecified abdominal pain; R11.0 Nausea; Z72.0 Tobacco use; Z28.310 Unvaccinated for COVID-19; Z79.891 Long term (current) use of opiate analgesic
CPT/HCPCS: 36415; 74176; 80053; 81015; 82150; 83690; 85025; 96360; 96374; 96375; 99284; J1170; J1885; J2405

== ENCOUNTER 2021-11-11 23:28 | Observation (INO) | payer MEDICAID ==
[2021-11-11] MEDS ORDERED: Zofran 4 MG/2 ML VIAL IV ONE (23:41)
[2021-11-11] MEDS ORDERED: Sodium Chloride 0.9% 1000 ML 1,000 ML IV STA (23:41)
[2021-11-11] MEDS ORDERED: MORPHINE SULFATE 4 MG INJ IV ONE (23:41)
[2021-11-12 00:03] LABS: Absolute Neutrophil Ct (ANC) 5.95 x10^3/uL (1.4-6.9); Basophil (Absolute #) 0.06 x10^3/uL (0-0.4); Eosinophil % 3.9 % (0.00-5.0); Eosinophil (Absolute #) 0.35 x10^3/uL (0-0.5); Hematocrit 42.6 % (42-50); Hemoglobin 14.4 g/dL (12.5-18.0); Lymphocyte (Absolute #) 1.97 x10^3/uL (1.0-4.6); Lymphocytes % 21.9 % (24.0-44.0); Mean Cell Volume 90.3 fL (78-100); Mean Corpuscular Hemoglobin 30.5 pg (26-32); Mean Corpuscular Hgb Concent. 33.8 g/dL (32-36); Monocyte (Absolute #) 0.65 x10^3/uL (0.0-1.3); Monocytes % 7.2 % (0.0-12.0); Neutrophil % 66.1 % (36.0-66.0); Platelet Count 198 x10^3/uL (150-450); Red Blood Count 4.72 x10^6/uL (4.1-5.6); Red Cell Distribution Width 12.9 % (11.5-14.0)
[2021-11-12] MEDS ORDERED: Sodium Chloride 0.9% 1000 ML 1,000 ML ONE (00:12)
[2021-11-12] MEDS ORDERED: MORPHINE SULFATE 4 MG INJ ONE ×2 (00:12→02:47)
[2021-11-12] MEDS ORDERED: Zofran 4 MG/2 ML VIAL ONE (00:12)
[2021-11-12 00:21] LABS: ALBUMIN 3.6 g/dL (3.5-5.0); ALKALINE PHOSPHATASE 81 U/L (38-126); ANION GAP 9.3 MEQ/L (5-15); BLOOD UREA NITROGEN 9 mg/dL (9-20); CHLORIDE 103 mmol/L (98-107); Calcium 9.3 mg/dL (8.4-10.2); Carbon Dioxide 26 mmol/L (22-30); Creatinine 1 0.93 mg/dL (0.66-1.25); EST GLOMERULAR FILTRATION RATE > 60.0 ML/MIN; Glucose 113 mg/dL (74-106); LIPASE 47 U/L (23-300); Potassium 3.5 mmol/L (3.5-5.1); SGOT/AST 22 U/L (17-59); SGPT/ALT 19 U/L (0-50); SODIUM 135 mmol/L (137-145); Total Protein 6.6 g/dL (6.3-8.2)
[2021-11-12 00:28] LABS: Appearance CLEAR (CLEAR); Bilirubin NEGATIVE (NEGATIVE); Dipstick done @ ? MAIN LAB; Glucose NEGATIVE (NEGATIVE); Ketones NEGATIVE (NEGATIVE); Nitrite NEGATIVE (NEGATIVE); Ph 5.5 (5-6); Protein,Urine Dip NEGATIVE (Negative); RBC SMALL Ery/ul (0-5); Specific Gravity >=1.030 (1.005-1.025); Urobilinogen 0.2 mg/dL (0-1)
[2021-11-12 00:30] LABS: Bacteria RARE /HPF (NEGATIVE); Epithelial Cells RARE /HPF (FEW); Mucus MODERATE /HPF (NEGATIVE); RBC 0-2 /HPF (0-2)
[2021-11-12 00:31] LABS: Urine Cultured Indicated? NO
--- NOTE | 2021-11-12 00:37 | ERPHSYRPT ---
- History of Present Illness Time Seen by Provider: 11/11/21 23:40 Historian: patient Exam Limitations: no limitations Patient Subjective Stated Complaint: abd pain and diarrhea x2 days Triage Nursing Assessment: pt c/o abd pain and diarrhea x2 days. Pt has upper abd pain across the abd, lower abd pain across the abd and pain to left side of abd. Pt also has left flank pain, describes pain as stabbing. Pt's abd firm with active bs x4 quad, tender on palpation. Physician History: Patient is a 41-year-old male presents to emergency department for evaluation of abdominal pain and diarrhea x2 days. Patient describes his pain as ache that is generalized across the abdomen. No associated trauma. No fever. No nausea or vomiting. Diarrhea is watery. Symptoms are mild to moderate in intensity. No specific worsening improving factors. Patient denies a history of the same. Patient voices no other complaints or concerns at this time. Portions of this note were created with voice recognition technology. There may be grammatical, spelling, punctuation or sound alike errors Timing/Duration: day(s) (2 days) Activities at Onset: none Quality: aching Abdominal Pain Onset Location: generalized abdomen Pain Radiation: no radiation Severity of Pain-Max: moderate Severity of Pain-Current: mild Modifying Factors: Improves With: nothing Associated Symptoms: diarrhea Previous symptoms: no prior history Allergies/Adverse Reactions: No Known Drug Allergies Allergy (Verified 11/11/21 23:43) Home Medications: No Reportable Medications [No Reported Medications] 11/11/21 [History] Hx Tetanus, Diphtheria Vaccination/Date Given: Yes Hx Influenza Vaccination/Date Given: No Hx Pneumococcal Vaccination/Date Given: No Immunizations Up to Date: Yes Travel Risk - International Travel Have you traveled outside of the country in past 3 weeks: No - Coronavirus Screening Are you exhibiting any of the following symptoms?: Yes Symptoms: Vomiting/Diarrhea, Headaches/Body Aches/Fatigue Close contact with a COVID-19 positive Pt in past 14-21 Days: No - Vaccine Status Have you recieved a Covid-19 vaccination: Yes 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 - Review of Systems Constitutional: No Symptoms, No Fever, No Chills Eyes: No Symptoms Ears, Nose, & Throat: No Symptoms Respiratory: No Symptoms, No Cough, No Dyspnea Cardiac: No Symptoms, No Chest Pain, No Edema, No Syncope Abdominal/Gastrointestinal: No Symptoms, No Abdominal Pain, No Nausea, No Vomiting, No Diarrhea Genitourinary Symptoms: No Symptoms, No Dysuria Musculoskeletal: No Symptoms, No Back Pain, No Neck Pain Skin: No Symptoms, No Rash Neurological: No Symptoms, No Dizziness, No Focal Weakness, No Sensory Changes Psychological: No Symptoms Endocrine: No Symptoms Hematologic/Lymphatic: No Symptoms Immunological/Allergic: No Symptoms All Other Systems: Reviewed and Negative - Past Medical History Pertinent Past Medical History: Yes Neurological History: No Pertinent History ENT History: No Pertinent History Cardiac History: No Pertinent History Respiratory History: No Pertinent History Endocrine Medical History: No Pertinent History Musculoskeletal History: Fractures GI Medical History: No Pertinent History History: No Pertinent History Psycho-Social History: Depression Male Reproductive Disorders: No Pertinent History Other Medical History: fx rt wrist and forearm, casted - Past Surgical History Past Surgical History: No Neuro Surgical History: No Pertinent History Cardiac: No Pertinent History Respiratory: No Pertinent History Gastrointestinal: No Pertinent History Genitourinary: No Pertinent History Musculoskeletal: No Pertinent History Male Surgical History: No Pertinent History - Social History Smoking Status: Current every day smoker How long have you smoked: 29 yrs Exposure to second hand smoke: Yes Drug Use: none Patient Lives Alone: No - Nursing Vital Signs Nursing Vital Signs: Initial Vital Signs Temperature 97.7 F 11/11/21 23:31 Pulse Rate 84 11/11/21 23:31 Respiratory Rate 18 11/11/21 23:31 Blood Pressure 118/87 11/11/21 23:31 O2 Sat by Pulse Oximetry 98 11/11/21 23:31 Pain Scale Pain Intensity 5 - Physical Exam General Appearance: no apparent distress, alert Eye Exam: PERRL/EOMI, eyes nml inspection Ears, Nose, Throat Exam: normal ENT inspection, pharynx normal, moist mucous membranes Neck Exam: normal inspection, non-tender, supple, full range of motion Respiratory Exam: normal breath sounds, lungs clear, airway intact, No respiratory distress Cardiovascular Exam: regular rate/rhythm, normal heart sounds Gastrointestinal/Abdomen Exam: soft, tenderness, other (Diffuse abdominal tenderness.), No normal bowel sounds, No distention, No mass, No guarding, No organomegaly, No splenomegaly Back Exam: normal inspection, normal range of motion, No CVA tenderness, No vertebral tenderness Extremity Exam: normal inspection, normal range of motion, pelvis stable Neurologic Exam: alert, oriented x 3, cooperative, normal mood/affect, nml cerebellar function, sensation nml, No motor deficits Skin Exam: normal color, warm, dry SpO2 Interpretation: normal SpO2: 98 O2 Delivery: Room Air - Course Nursing assessment & vital signs reviewed: Yes - CT Exams Abdomen/Pelvis CT Interpretation: Tele-radiologist Report (Bowel wall thickening of the colon with surrounding edema. Minimal atherosclerotic disease. Colitis) Ordered Tests: Active Orders 24 hr Category Date Time Status IV Insertion STAT Care 11/11/21 23:41 Active CBC W DIFF Stat Lab 11/11/21 23:59 Completed CMP Stat Lab 11/11/21 23:59 Completed LIPASE Stat Lab 11/11/21 23:59 Completed TROPONIN Q4H Lab 11/11/21 23:59 Completed TROPONIN Q4H Lab 11/12/21 03:45 Ordered TROPONIN Q4H Lab 11/12/21 07:45 Ordered UA W/RFX CULTURE Stat Lab 11/12/21 00:08 Completed Transfer Order Routine Transfer 11/12/21 Ordered Medication Summary Discontinued Medications Generic Name Dose Route Start Last Admin Trade Name Freq PRN Reason Stop Dose Admin Sodium Chloride 1,000 mls @ 999 mls/hr 11/11/21 23:41 11/12/21 00:16 Sodium Chloride 0.9% 1000 Ml IV 11/12/21 00:41 999 mls/hr .Q1H1M STA Administration Sodium Chloride Confirm 11/12/21 00:12 Sodium Chloride 0.9% 1000 Ml Administered 11/12/21 00:13 Dose 1,000 mls @ ud .ROUTE .STK-MED ONE Levofloxacin/Dextrose 500 mg in 100 mls @ 100 mls/hr 11/12/21 00:56 11/12/21 01:03 Levofloxacin 500mg/100ml D5w IV 11/12/21 01:55 100 mls/hr STAT STA 100 mls/hr Administration Metronidazole 500 mg in 100 mls @ 200 mls/hr 11/12/21 00:56 11/12/21 01:32 Flagyl 500 Mg Ivpb IV 11/12/21 01:25 200 mls/hr STAT STA 200 mls/hr Administration Levofloxacin/Dextrose Confirm 11/12/21 01:02 Levofloxacin 500mg/100ml D5w Administered 11/12/21 01:03 Dose 500 mg in 100 mls @ ud IV .STK-MED ONE Metronidazole Confirm 11/12/21 01:29 Flagyl 500 Mg Ivpb Administered 11/12/21 01:30 Dose 500 mg in 100 mls @ ud IV .STK-MED ONE Morphine Sulfate 4 mg 11/11/21 23:41 11/12/21 00:16 Morphine Sulfate 4 Mg/Ml Injection IV 11/11/21 23:42 4 mg STAT ONE Administration Morphine Sulfate Confirm 11/12/21 00:12 Morphine Sulfate 4 Mg/Ml Injection Administered 11/12/21 00:13 Dose 4 mg .ROUTE .STK-MED ONE Morphine Sulfate 4 mg 11/12/21 02:44 11/12/21 02:48 Morphine Sulfate 4 Mg/Ml Injection IV 11/12/21 02:45 4 mg STAT ONE Administration Morphine Sulfate Confirm 11/12/21 02:47 Morphine Sulfate 4 Mg/Ml Injection Administered 11/12/21 02:48 Dose 4 mg .ROUTE .STK-MED ONE Ondansetron HCl 4 mg 11/11/21 23:41 11/12/21 00:16 Ondansetron Hcl 4 Mg/2 Ml Vial IV 11/11/21 23:42 4 mg STAT ONE Administration Ondansetron HCl Confirm 11/12/21 00:12 Ondansetron Hcl 4 Mg/2 Ml Vial Administered 11/12/21 00:13 Dose 4 mg .ROUTE .STK-MED ONE Pantoprazole Sodium 40 mg 11/12/21 02:53 Pantoprazole 40 Mg Vial IV 11/12/21 02:54 STAT ONE Lab/Rad Data: Laboratory Result Diagrams 11/11/21 23:59 11/11/21 23:59 Laboratory Results 11/12/21 11/12/21 11/11/21 Range/Units 01:02 00:08 23:59 WBC (4.0-10.5) x10^3/uL RBC (4.1-5.6) x10^6/uL Hgb (12.5-18.0) g/dL Hct (42-50) % MCV (78-100) fL MCH (26-32) pg MCHC (32-36) g/dL RDW (11.5-14.0) % Plt Count (150-450) x10^3/uL MPV (7.5-11.0) fL Gran % (36.0-66.0) % Immature Gran % (Auto) (0.00-0.4) % Nucleat RBC Rel Count (0.00-0.1) % Eos # (Auto) (0-0.5) x10^3/uL Immature Gran # (Auto) (0.00-0.03) x10^3u/L Absolute Lymphs (auto) (1.0-4.6) x10^3/uL Absolute Monos (auto) (0.0-1.3) x10^3/uL Absolute Nucleated RBC (0.00-0.01) x10^3u/L Lymphocytes % (24.0-44.0) % Monocytes % (0.0-12.0) % Eosinophils % (0.00-5.0) % Basophils % (0.0-0.4) % Absolute Granulocytes (1.4-6.9) x10^3/uL Basophils # (0-0.4) x10^3/uL Sodium (137-145) mmol/L Potassium (3.5-5.1) mmol/L Chloride (98-107) mmol/L Carbon Dioxide (22-30) mmol/L Anion Gap (5-15) MEQ/L BUN (9-20) mg/dL Creatinine (0.66-1.25) mg/dL Estimated GFR ML/MIN Glucose (74-106) mg/dL Calcium (8.4-10.2) mg/dL Total Bilirubin (0.2-1.3) mg/dL AST (17-59) U/L ALT (0-50) U/L Alkaline Phosphatase (38-126) U/L Troponin I < 0.012 (0.000-0.034) ng/mL Serum Total Protein (6.3-8.2) g/dL Albumin (3.5-5.0) g/dL Lipase (23-300) U/L Urinalys Dipstick Clnc MAIN LAB Urine Color YELLOW (YELLOW) Urine Appearance CLEAR (CLEAR) Urine pH 5.5 (5-6) Ur Specific [place] >=1.030 (1.005-1.025) POC Urine Protein Conf NEGATIVE (Negative) Urine Ketones NEGATIVE (NEGATIVE) Urine Nitrite NEGATIVE (NEGATIVE) Urine Bilirubin NEGATIVE (NEGATIVE) Urine Urobilinogen 0.2 (0-1) mg/dL Urine Leukocytes NEGATIVE (NEGATIVE) Urine WBC (Auto) 3-5 (0-5) /HPF Urine RBC (Auto) 0-2 (0-2) /HPF U Epithel Cells (Auto) RARE (FEW) /HPF Urine Bacteria (Auto) RARE (NEGATIVE) /HPF Urine RBC SMALL (0-5) Tyler/ul Calcium Oxalate Crystal 3-5 (NEGATIVE) /HPF Urine Mucus (Auto) MODERATE (NEGATIVE) /HPF Ur Culture Indicated? NO Urine Glucose NEGATIVE (NEGATIVE) mg/dL Influenza Type A Ag NEGATIVE (NEGATIVE) Influenza Type B Ag NEGATIVE (NEGATIVE) RSV (PCR) NEGATIVE (Negative) SARS-CoV-2 (PCR) NEGATIVE (NEGATIVE) 11/11/21 11/11/21 Range/Units 23:59 23:59 WBC 9.0 (4.0-10.5) x10^3/uL RBC 4.72 (4.1-5.6) x10^6/uL Hgb 14.4 (12.5-18.0) g/dL Hct 42.6 (42-50) % MCV 90.3 (78-100) fL MCH 30.5 (26-32) pg MCHC 33.8 (32-36) g/dL RDW 12.9 (11.5-14.0) % Plt Count 198 (150-450) x10^3/uL MPV 11.0 (7.5-11.0) fL Gran % 66.1 H (36.0-66.0) % Immature Gran % (Auto) 0.2 (0.00-0.4) % Nucleat RBC Rel Count 0.0 (0.00-0.1) % Eos # (Auto) 0.35 (0-0.5) x10^3/uL Immature Gran # (Auto) 0.02 (0.00-0.03) x10^3u/L Absolute Lymphs (auto) 1.97 (1.0-4.6) x10^3/uL Absolute Monos (auto) 0.65 (0.0-1.3) x10^3/uL Absolute Nucleated RBC 0.00 (0.00-0.01) x10^3u/L Lymphocytes % 21.9 L (24.0-44.0) % Monocytes % 7.2 (0.0-12.0) % Eosinophils % 3.9 (0.00-5.0) % Basophils % 0.7 (0.0-0.4) % Absolute Granulocytes 5.95 (1.4-6.9) x10^3/uL Basophils # 0.06 (0-0.4) x10^3/uL Sodium 135 L (137-145) mmol/L Potassium 3.5 (3.5-5.1) mmol/L Chloride 103 (98-107) mmol/L Carbon Dioxide 26 (22-30) mmol/L Anion Gap 9.3 (5-15) MEQ/L BUN 9 (9-20) mg/dL Creatinine 0.93 (0.66-1.25) mg/dL Estimated GFR > 60.0 ML/MIN Glucose 113 H (74-106) mg/dL Calcium 9.3 (8.4-10.2) mg/dL Total Bilirubin 0.40 (0.2-1.3) mg/dL AST 22 (17-59) U/L ALT 19 (0-50) U/L Alkaline Phosphatase 81 (38-126) U/L Troponin I (0.000-0.034) ng/mL Serum Total Protein 6.6 (6.3-8.2) g/dL Albumin 3.6 (3.5-5.0) g/dL Lipase 47 (23-300) U/L Urinalys Dipstick Clnc Urine Color (YELLOW) Urine Appearance (CLEAR) Urine pH (5-6) Ur Specific [place] (1.005-1.025) POC Urine Protein Conf (Negative) Urine Ketones (NEGATIVE) Urine Nitrite (NEGATIVE) Urine Bilirubin (NEGATIVE) Urine Urobilinogen (0-1) mg/dL Urine Leukocytes (NEGATIVE) Urine WBC (Auto) (0-5) /HPF Urine RBC (Auto) (0-2) /HPF U Epithel Cells (Auto) (FEW) /HPF Urine Bacteria (Auto) (NEGATIVE) /HPF Urine RBC (0-5) Tyler/ul Calcium Oxalate Crystal (NEGATIVE) /HPF Urine Mucus (Auto) (NEGATIVE) /HPF Ur Culture Indicated? Urine Glucose (NEGATIVE) mg/dL Influenza Type A Ag (NEGATIVE) Influenza Type B Ag (NEGATIVE) RSV (PCR) (Negative) SARS-CoV-2 (PCR) (NEGATIVE) - Progress Progress: improved Progress Note: Patient reassessed. Pain significantly improved after administration of morphine. Work-up reveals colitis. Antibiotics infused. Patient experiencing significant diarrhea. IV fluids infused. Patient states he is not ready to go home at this time. Case discussed with Dr. Wells who accepts admission to ob servation. COVID test negative. We will admit for further evaluation and treatment of colitis. Admit orders entered. Clear liquid diet entered. Patient received a dose of Protonix in our ED. Patient agrees to admission at [facility] for further evaluation and treatment. Portions of this note were created with voice recognition technology. There may be grammatical, spelling, punctuation or sound alike errors 11/12/21 02:56 Will see patient in: hospital (observation) Counseled pt/family regarding: lab results, diagnosis, rad results - Departure Departure Disposition: Observation Clinical Impression: Colitis, Diarrhea, Abdominal pain Condition: Stable Critical Care Time: No Referrals: EMERITA WELLS MD [Primary Care Provider] - Follow up/PCP as directed
[2021-11-12] MEDS ORDERED: Levofloxacin 500MG/100ML D5W 500 MG/100 ML BAG IV STA (00:56)
[2021-11-12] MEDS ORDERED: FLAGYL 500 MG IVPB 500 MG/100 ML BAG IV STA (00:56)
[2021-11-12] MEDS ORDERED: Levofloxacin 500MG/100ML D5W 500 MG/100 ML BAG IV ONE (01:02)
[2021-11-12] MEDS ORDERED: FLAGYL 500 MG IVPB 500 MG/100 ML BAG IV ONE (01:29)
[2021-11-12 01:41] LABS: INFLUENZA A NEGATIVE (NEGATIVE); INFLUENZA B NEGATIVE (NEGATIVE); RESPIRATORY SYNCTIAL VIRUS NEGATIVE (Negative); SARS-CoV-2 Xpert Express NEGATIVE (NEGATIVE)
[2021-11-12] MEDS ORDERED: MORPHINE SULFATE 4 MG INJ IV ONE (02:44)
[2021-11-12] MEDS ORDERED: PROTONIX 40 MG IV IV ONE ×2 (02:53→02:55)
[2021-11-12] MEDS ORDERED: Zofran 4 MG/2 ML VIAL IV PRN (03:10)
[2021-11-12] MEDS ORDERED: MORPHINE SULFATE 4 MG INJ IV PRN (03:10)
[2021-11-12] MEDS: Sodium Chloride 0.9% 1000 ML 1,000 ML IV SCH ×2 (03:40→20:09)
[2021-11-12 04:38] LABS: ALBUMIN 3.2 g/dL (3.5-5.0); ALKALINE PHOSPHATASE 70 U/L (38-126); ANION GAP 8.6 MEQ/L (5-15); BLOOD UREA NITROGEN 7 mg/dL (9-20); CHLORIDE 104 mmol/L (98-107); Calcium 8.8 mg/dL (8.4-10.2); Carbon Dioxide 27 mmol/L (22-30); Creatinine 1 0.85 mg/dL (0.66-1.25); EST GLOMERULAR FILTRATION RATE > 60.0 ML/MIN; Glucose 98 mg/dL (74-106); Potassium 3.5 mmol/L (3.5-5.1); SGOT/AST 20 U/L (17-59); SGPT/ALT 18 U/L (0-50); SODIUM 136 mmol/L (137-145); Total Protein 6.1 g/dL (6.3-8.2)
[2021-11-12 04:59] LABS: Absolute Neutrophil Ct (ANC) 5.13 x10^3/uL (1.4-6.9); Basophil (Absolute #) 0.07 x10^3/uL (0-0.4); Eosinophil % 4.3 % (0.00-5.0); Eosinophil (Absolute #) 0.35 x10^3/uL (0-0.5); Hematocrit 41.2 % (42-50); Hemoglobin 13.7 g/dL (12.5-18.0); Lymphocyte (Absolute #) 1.81 x10^3/uL (1.0-4.6); Lymphocytes % 22.4 % (24.0-44.0); Mean Cell Volume 91.2 fL (78-100); Mean Corpuscular Hemoglobin 30.3 pg (26-32); Mean Corpuscular Hgb Concent. 33.3 g/dL (32-36); Mean Platelet Volume 11.1 fL (7.5-11.0); Monocyte (Absolute #) 0.71 x10^3/uL (0.0-1.3); Monocytes % 8.8 % (0.0-12.0); Neutrophil % 63.4 % (36.0-66.0); Platelet Count 184 x10^3/uL (150-450); Red Blood Count 4.52 x10^6/uL (4.1-5.6); Red Cell Distribution Width 13.1 % (11.5-14.0); White Blood Count 8.1 x10^3/uL (4.0-10.5)
[2021-11-12] MEDS: FLAGYL 500 MG IVPB 500 MG/100 ML BAG IV SCH ×3 (07:15→18:05)
[2021-11-12] MEDS ORDERED: MOTRIN 600 MG PO ONE (07:30)
[2021-11-12] MEDS: Hydromorphone 1 mg/ml Injection IV PRN ×2 (07:41→11:20)
--- NOTE | 2021-11-12 08:31 | PCM.HP ---
History of Present Illness - Chief Complaint Chief Complaint: enteritis History of Present Illness: Mr.COOK LAM is a 41 year old male who presented to the ER with a 3 day history of worsening abdominal pain and diarrhea, no blood in the stool or fever. symptoms began after eating [employer] breakfast burritos, no previous history of similar illness. - Review of Systems Constitutional: No Fever, No Chills Eyes: No Symptoms Respiratory: No Cough, No Short Of Breath Cardiac: No Chest Pain, No Edema, No Syncope Abdominal/Gastrointestinal: Abdominal Pain, Diarrhea, No Nausea, No Vomiting, No Hematochezia, No Melena Genitourinary Symptoms: No Dysuria Skin: No Rash All Other Systems: Reviewed and Negative Medications & Allergies Home Medications: Home Medication List No Reportable Medications [No Reported Medications] 11/11/21 [History Confirmed 11/11/21] Allergies/Adverse Reactions: Allergies Allergy/AdvReac Type Severity Reaction Status Date / Time No Known Drug Allergies Allergy Verified 11/11/21 23:43 - Past Medical History Past Medical History: No Neurological History: No Pertinent History ENT History: No Pertinent History Cardiac History: No Pertinent History Respiratory History: No Pertinent History Endocrine Medical History: No Pertinent History Musculoskelatal History: Fractures GI Medical History: No Pertinent History History: No Pertinent History Pyscho-Social History: Depression Male Reproductive Disorders: No Pertinent History Comment: fx rt wrist and forearm, casted - Past Surgical History Past Surgical History: No Neuro Surgical History: No Pertinent History Cardiac History: No Pertinent History Respiratory Surgery: No Pertinent History GI Surgical History: No Pertinent History Genitourinary Surgical Hx: No Pertinent History Musculskeletal Surgical Hx: No Pertinent History Male Surgical History: No Pertinent History - Social History Smoking Status: Current every day smoker How long have you smoked: 29 yrs Exposure to second hand smoke: Yes Alcohol: None Drug Use: none - Physical Exam Vital Signs: Vital Signs - 24 hr Temp Pulse Resp BP Pulse Ox 11/12/21 08:00 97.8 F 73 19 126/65 97 11/12/21 03:16 98.2 F 76 18 130/88 97 11/12/21 03:01 98 11/12/21 02:00 70 18 132/82 96 11/12/21 01:00 74 18 126/90 98 11/12/21 00:00 87 18 117/91 98 11/11/21 23:31 97.7 F 84 18 118/87 98 General Appearance: no apparent distress Neurologic Exam: alert, oriented x 3 Respiratory Exam: normal breath sounds, lungs clear, No respiratory distress Cardiovascular Exam: regular rate/rhythm, normal heart sounds, normal peripheral pulses Gastrointestinal/Abdomen Exam: soft, No tenderness, No distention, No guarding, No rebound Skin Exam: normal color, warm, dry, No rash Results - Labs Lab/Micro Results: Lab Results-Last 24 Hours 11/11/21 11/11/21 11/11/21 Range/Units 23:59 23:59 23:59 WBC 9.0 (4.0-10.5) x10^3/uL RBC 4.72 (4.1-5.6) x10^6/uL Hgb 14.4 (12.5-18.0) g/dL Hct 42.6 (42-50) % MCV 90.3 (78-100) fL MCH 30.5 (26-32) pg MCHC 33.8 (32-36) g/dL RDW 12.9 (11.5-14.0) % Plt Count 198 (150-450) x10^3/uL MPV 11.0 (7.5-11.0) fL Gran % 66.1 H (36.0-66.0) % Immature Gran % (Auto) 0.2 (0.00-0.4) % Nucleat RBC Rel Count 0.0 (0.00-0.1) % Eos # (Auto) 0.35 (0-0.5) x10^3/uL Immature Gran # (Auto) 0.02 (0.00-0.03) x10^3u/L Absolute Lymphs (auto) 1.97 (1.0-4.6) x10^3/uL Absolute Monos (auto) 0.65 (0.0-1.3) x10^3/uL Absolute Nucleated RBC 0.00 (0.00-0.01) x10^3u/L Lymphocytes % 21.9 L (24.0-44.0) % Monocytes % 7.2 (0.0-12.0) % Eosinophils % 3.9 (0.00-5.0) % Basophils % 0.7 (0.0-0.4) % Absolute Granulocytes 5.95 (1.4-6.9) x10^3/uL Basophils # 0.06 (0-0.4) x10^3/uL Sodium 135 L (137-145) mmol/L Potassium 3.5 (3.5-5.1) mmol/L Chloride 103 (98-107) mmol/L Carbon Dioxide 26 (22-30) mmol/L Anion Gap 9.3 (5-15) MEQ/L BUN 9 (9-20) mg/dL Creatinine 0.93 (0.66-1.25) mg/dL Estimated GFR > 60.0 ML/MIN Glucose 113 H (74-106) mg/dL Calcium 9.3 (8.4-10.2) mg/dL Total Bilirubin 0.40 (0.2-1.3) mg/dL AST 22 (17-59) U/L ALT 19 (0-50) U/L Alkaline Phosphatase 81 (38-126) U/L Troponin I < 0.012 (0.000-0.034) ng/mL Serum Total Protein 6.6 (6.3-8.2) g/dL Albumin 3.6 (3.5-5.0) g/dL Lipase 47 (23-300) U/L Urinalys Dipstick Clnc Urine Color (YELLOW) Urine Appearance (CLEAR) Urine pH (5-6) Ur Specific [place] (1.005-1.025) POC Urine Protein Conf (Negative) Urine Ketones (NEGATIVE) Urine Nitrite (NEGATIVE) Urine Bilirubin (NEGATIVE) Urine Urobilinogen (0-1) mg/dL Urine Leukocytes (NEGATIVE) Urine WBC (Auto) (0-5) /HPF Urine RBC (Auto) (0-2) /HPF U Epithel Cells (Auto) (FEW) /HPF Urine Bacteria (Auto) (NEGATIVE) /HPF Urine RBC (0-5) Tyler/ul Calcium Oxalate Crystal (NEGATIVE) /HPF Urine Mucus (Auto) (NEGATIVE) /HPF Ur Culture Indicated? Urine Glucose (NEGATIVE) mg/dL Influenza Type A Ag (NEGATIVE) Influenza Type B Ag (NEGATIVE) RSV (PCR) (Negative) SARS-CoV-2 (PCR) (NEGATIVE) 11/12/21 11/12/21 11/12/21 Range/Units 00:08 01:02 04:14 WBC (4.0-10.5) x10^3/uL RBC (4.1-5.6) x10^6/uL Hgb (12.5-18.0) g/dL Hct (42-50) % MCV (78-100) fL MCH (26-32) pg MCHC (32-36) g/dL RDW (11.5-14.0) % Plt Count (150-450) x10^3/uL MPV (7.5-11.0) fL Gran % (36.0-66.0) % Immature Gran % (Auto) (0.00-0.4) % Nucleat RBC Rel Count (0.00-0.1) % Eos # (Auto) (0-0.5) x10^3/uL Immature Gran # (Auto) (0.00-0.03) x10^3u/L Absolute Lymphs (auto) (1.0-4.6) x10^3/uL Absolute Monos (auto) (0.0-1.3) x10^3/uL Absolute Nucleated RBC (0.00-0.01) x10^3u/L Lymphocytes % (24.0-44.0) % Monocytes % (0.0-12.0) % Eosinophils % (0.00-5.0) % Basophils % (0.0-0.4) % Absolute Granulocytes (1.4-6.9) x10^3/uL Basophils # (0-0.4) x10^3/uL Sodium (137-145) mmol/L Potassium (3.5-5.1) mmol/L Chloride (98-107) mmol/L Carbon Dioxide (22-30) mmol/L Anion Gap (5-15) MEQ/L BUN (9-20) mg/dL Creatinine (0.66-1.25) mg/dL Estimated GFR ML/MIN Glucose (74-106) mg/dL Calcium (8.4-10.2) mg/dL Total Bilirubin (0.2-1.3) mg/dL AST (17-59) U/L ALT (0-50) U/L Alkaline Phosphatase (38-126) U/L Troponin I < 0.012 (0.000-0.034) ng/mL Serum Total Protein (6.3-8.2) g/dL Albumin (3.5-5.0) g/dL Lipase (23-300) U/L Urinalys Dipstick Clnc MAIN LAB Urine Color YELLOW (YELLOW) Urine Appearance CLEAR (CLEAR) Urine pH 5.5 (5-6) Ur Specific [place] >=1.030 (1.005-1.025) POC Urine Protein Conf NEGATIVE (Negative) Urine Ketones NEGATIVE (NEGATIVE) Urine Nitrite NEGATIVE (NEGATIVE) Urine Bilirubin NEGATIVE (NEGATIVE) Urine Urobilinogen 0.2 (0-1) mg/dL Urine Leukocytes NEGATIVE (NEGATIVE) Urine WBC (Auto) 3-5 (0-5) /HPF Urine RBC (Auto) 0-2 (0-2) /HPF U Epithel Cells (Auto) RARE (FEW) /HPF Urine Bacteria (Auto) RARE (NEGATIVE) /HPF Urine RBC SMALL (0-5) Tyler/ul Calcium Oxalate Crystal 3-5 (NEGATIVE) /HPF Urine Mucus (Auto) MODERATE (NEGATIVE) /HPF Ur Culture Indicated? NO Urine Glucose NEGATIVE (NEGATIVE) mg/dL Influenza Type A Ag NEGATIVE (NEGATIVE) Influenza Type B Ag NEGATIVE (NEGATIVE) RSV (PCR) NEGATIVE (Negative) SARS-CoV-2 (PCR) NEGATIVE (NEGATIVE) 11/12/21 11/12/21 Range/Units 04:14 04:14 WBC 8.1 (4.0-10.5) x10^3/uL RBC 4.52 (4.1-5.6) x10^6/uL Hgb 13.7 (12.5-18.0) g/dL Hct 41.2 L (42-50) % MCV 91.2 (78-100) fL MCH 30.3 (26-32) pg MCHC 33.3 (32-36) g/dL RDW 13.1 (11.5-14.0) % Plt Count 184 (150-450) x10^3/uL MPV 11.1 H (7.5-11.0) fL Gran % 63.4 (36.0-66.0) % Immature Gran % (Auto) 0.2 (0.00-0.4) % Nucleat RBC Rel Count 0.0 (0.00-0.1) % Eos # (Auto) 0.35 (0-0.5) x10^3/uL Immature Gran # (Auto) 0.02 (0.00-0.03) x10^3u/L Absolute Lymphs (auto) 1.81 (1.0-4.6) x10^3/uL Absolute Monos (auto) 0.71 (0.0-1.3) x10^3/uL Absolute Nucleated RBC 0.00 (0.00-0.01) x10^3u/L Lymphocytes % 22.4 L (24.0-44.0) % Monocytes % 8.8 (0.0-12.0) % Eosinophils % 4.3 (0.00-5.0) % Basophils % 0.9 (0.0-0.4) % Absolute Granulocytes 5.13 (1.4-6.9) x10^3/uL Basophils # 0.07 (0-0.4) x10^3/uL Sodium 136 L (137-145) mmol/L Potassium 3.5 (3.5-5.1) mmol/L Chloride 104 (98-107) mmol/L Carbon Dioxide 27 (22-30) mmol/L Anion Gap 8.6 (5-15) MEQ/L BUN 7 L (9-20) mg/dL Creatinine 0.85 (0.66-1.25) mg/dL Estimated GFR > 60.0 ML/MIN Glucose 98 (74-106) mg/dL Calcium 8.8 (8.4-10.2) mg/dL Total Bilirubin 0.40 (0.2-1.3) mg/dL AST 20 (17-59) U/L ALT 18 (0-50) U/L Alkaline Phosphatase 70 (38-126) U/L Troponin I (0.000-0.034) ng/mL Serum Total Protein 6.1 L (6.3-8.2) g/dL Albumin 3.2 L (3.5-5.0) g/dL Lipase (23-300) U/L Urinalys Dipstick Clnc Urine Color (YELLOW) Urine Appearance (CLEAR) Urine pH (5-6) Ur Specific [place] (1.005-1.025) POC Urine Protein Conf (Negative) Urine Ketones (NEGATIVE) Urine Nitrite (NEGATIVE) Urine Bilirubin (NEGATIVE) Urine Urobilinogen (0-1) mg/dL Urine Leukocytes (NEGATIVE) Urine WBC (Auto) (0-5) /HPF Urine RBC (Auto) (0-2) /HPF U Epithel Cells (Auto) (FEW) /HPF Urine Bacteria (Auto) (NEGATIVE) /HPF Urine RBC (0-5) Tyler/ul Calcium Oxalate Crystal (NEGATIVE) /HPF Urine Mucus (Auto) (NEGATIVE) /HPF Ur Culture Indicated? Urine Glucose (NEGATIVE) mg/dL Influenza Type A Ag (NEGATIVE) Influenza Type B Ag (NEGATIVE) RSV (PCR) (Negative) SARS-CoV-2 (PCR) (NEGATIVE) - Radiology Impressions Radiology Exams & Impressions: Radiology Procedures Category Date Time Status ABDOMEN AND PELVIS W/0 CONTRAS [CT] Stat Exams 11/11/21 00:02 Taken Assessment/Plan (1) Colitis Current Visit: Yes Status: Acute Assessment & Plan: continue levaquin and flagyl, clear liquids, IV fludis and pain/nausea control PRN Code(s): K52.9 - NONINFECTIVE GASTROENTERITIS AND COLITIS, UNSPECIFIED
--- NOTE | 2021-11-12 09:03 | XRAY ---
Indication: Abdomen pain and diarrhea 3 days. Multiple contiguous axial images obtained through the abdomen and pelvis without contrast. Comparison: September 13, 2021 Lung bases clear. Heart not enlarged. Stable small hiatal hernia with distal esophageal circumferential wall thickening again concerning for reflux esophagitis. Noncontrasted stomach and bowel loops again nonobstructed with normal appendix. Majority of the colon now demonstrates mild circumferential wall thickening with minimal pericolonic stranding favoring colitis. No free fluid/air. Remaining liver, gallbladder, pancreas, spleen, adrenal glands, kidneys, ureters, bladder, and aorta are unremarkable for noncontrast exam. Osseous structures intact. Impression: 1. New CT features favoring colitis. 2. Small hiatal hernia with distal esophageal wall thickening. Again rule out reflux esophagitis. Comment: Preliminary interpretation made by C. No critical discrepancy.
[2021-11-12] MEDS ORDERED: PROTONIX 40 MG IV IV SCH ×2 (10:00→22:00)
[2021-11-12] MEDS ORDERED: MOTRIN 600 MG PO SCH (12:00)
[2021-11-12] MEDS: MOTRIN 600 MG PO PRN (14:47)
[2021-11-12] MEDS ORDERED: BENADRYL 50 MG/ML IV ONE (18:40)
[2021-11-12] MEDS ORDERED: Levofloxacin 500MG/100ML D5W 500 MG/100 ML BAG IV SCH (22:00)
[2021-11-13] MEDS: Sodium Chloride 0.9% 1000 ML 1,000 ML IV SCH (01:14)
[2021-11-13] MEDS: MOTRIN 600 MG PO PRN (08:21)
[2021-11-13 12:35] VITALS: BP 109/68; PULSE 64; O2SAT 97
--- NOTE | 2021-11-13 13:34 | PCM.DS ---
Discharge Summary Date of Admission: 11/12/21 03:08 Admitting Physician: EMERITA WHITE Primary Care Provider: EMERITA WHITE Allergies Allergies metronidazole [From Flagyl] Adverse Reaction (Intermediate, Verified 11/12/21 18:48) Headache Hospital Summary - Hospital Course Hospital Course: Mr.COOK LAM is a 41 year old male pt of Dr. White who presented to the ER with a 3 day history of worsening abdominal pain and diarrhea, no blood in the stool or fever. symptoms began after eating [employer] breakfast burritos, no previous history of similar illness. He was started on IV levaquin and flagyl and started to improve; he did have a severe MORALES in reaction to the flagyl so that was stopped yesterday. Today he is feeling much better, tolerated toast and eggs this morning. Having some 3-4/10 LLQ pain. Last pain med was yesterday morning. Had a little diarrhea earlier this morning. He will be discharged to home on po levaquin to finish 7d. f/u with Dr. White in 1 week in office. He will eat a bland diet and decrease his activity x 2-3d. - Vitals & Intake/Output Vital Signs: Vital Signs Temperature 97.5 F 11/13/21 12:00 Pulse Rate 64 11/13/21 12:00 Respiratory Rate 19 11/13/21 12:00 Blood Pressure 109/68 11/13/21 12:00 O2 Sat by Pulse Oximetry 97 11/13/21 12:00 Intake & Output: Intake & Output 11/11/21 11/12/21 11/13/21 11/14/21 11:59 11:59 11:59 11:59 Intake Total 480 4095 Balance 480 4095 Weight 88.7 kg - Lab Result Diagrams: 11/12/21 04:14 11/12/21 04:14 - Procedures and Test Procedures and Tests throughout Hospitalization: Therapy Orders & Screens 11/12/21 03:34 Smoking Cessation Education ONCE Comment: Diagnosis: enteritis Smoking Status: Current every day smoker How long have you smoked: 29 yrs Approximately how many cigarettes per day: 20 Do you dip or chew tobacco: No If,Former Smoker,when did you quit: 2 dats Discharge Exam General Appearance: no apparent distress, alert Neurologic Exam: oriented x 3, cooperative Eye Exam: eyes nml inspection Ears, Nose, Throat Exam: normal ENT inspection Neck Exam: normal inspection Respiratory Exam: normal breath sounds, lungs clear, No crackles/rales, No rhonchi, No wheezing Cardiovascular Exam: regular rate/rhythm, normal heart sounds, No murmur Gastrointestinal/Abdomen Exam: soft, normal bowel sounds, tenderness (mild, throughout lower abdomen.), No mass, No guarding, No rebound Back Exam: normal inspection, No rash Extremity Exam: normal inspection, No pedal edema, No swelling Skin Exam: normal color, warm, dry, No rash Final Diagnosis/Problem List - Final Discharge Diagnosis/Problem (1) Colitis Current Visit: Yes Status: Acute Assessment & Plan: Improved. Home on flagyl. F/u with PCp in1 week. Code(s): K52.9 - NONINFECTIVE GASTROENTERITIS AND COLITIS, UNSPECIFIED - Discharge Disposition: Home, Self-Care Condition: Good Prescriptions: New Lactobacillus Acidophilus [Acidophilus TABLET] 1 tab PO TID #30 tablet Levofloxacin [Levofloxacin 250MG Tablet] 500 mg PO DAILY #6 tab Instructions: Colitis Forms: Discharge Instructions
== END 2021-11-13 14:20 | disposition home or self-care (01) ==
LOC: ED 23:28 → MED SURG 11-12 03:08
PROVIDERS: ADMIT Family Medicine; ATTEND Family Medicine
DX: K52.9 Noninfective gastroenteritis and colitis, unspecified (principal); Z20.828 Contact with and (suspected) exposure to other viral communicable diseases; Z72.0 Tobacco use
CPT/HCPCS: 0241U; 36000; 36415; 74176; 80053; 81015; 83690; 84484; 85025; 96374; 96375; 99285; G0378; J1170; J1200; J1956; J2270; J2405; A9270-GY

== ENCOUNTER 2024-04-10 18:15 | Emergency (ER) | payer SELFPAY ==
[2024-04-10 18:30] VITALS: PULSE 74; RESP 16; TEMP 98.3
[2024-04-10 19:17] LABS: Appearance Clear (Clear); Bacteria None Seen /HPF (None Seen); Bilirubin Negative (Negative); Blood Negative (Negative); Epithelial Cells None Seen /HPF (None Seen); Glucose, Urine Negative (Negative); Hyaline Casts NONE SEEN /LPF (0-2); Ketones Negative (Negative); Leukocyte Esterase Negative (Negative); Nitrite Negative (Negative); Protein,Urine Dip Negative (Negative); RBC 0-2 /HPF (0-5); Urobilinogen 0.2 mg/dL (0.2); WBC 0-2 /HPF (0-5)
--- NOTE | 2024-04-10 19:25 | ERPHSYRPT ---
- History of Present Illness Time Seen by Provider: 04/10/24 19:15 Historian: patient Exam Limitations: no limitations Patient Subjective Stated Complaint: PT IS HERE FOR PAIN TO LEFT FLANK AREA FOR A COUPLE DAYS NOW, HE STATES IT HAPPENED AFTER SHOVELING SNOW, HE STATES HE IS UNABLE TO STAND STRAIGHT DUE TO PAIN Triage Nursing Assessment: PT ALERT, WALKED IN BENT OVER, RESP EASY, SKIN W/D/P.MOVES ALL EXT WELL Physician History: This is a 43-year-old white male patient of Dr. Wells who arrives to the emergency department by private vehicle accompanied by his significant other because of left flank pain that he describes as acute, stabbing and aching that is constant. Is hard for him to stand up straight when ambulating. His level of pain is 10 out of 10. Patient has no dysuria, frequency or hematuria. Onset seem to coincide with him shoveling snow. Patient denies chest pain. Patient denies shortness of breath. Patient denies nausea vomiting and diarrhea. Timing/Duration: day(s) (2 to 3 days) Activities at Onset: other (Shoveling snow) Quality: aching, sharpness Abdominal Pain Onset Location: flank (Left flank) Pain Radiation: no radiation Severity of Pain-Max: moderate Severity of Pain-Current: moderate Modifying Factors: Improves With: movement, position, walking Associated Symptoms: denies symptoms Previous symptoms: no prior history, no recent treatment Allergies/Adverse Reactions: metronidazole [From Flagyl] Adverse Reaction (Intermediate, Verified 04/10/24 18:29) Headache Hx Tetanus, Diphtheria Vaccination/Date Given: No Hx Influenza Vaccination/Date Given: No Hx Pneumococcal Vaccination/Date Given: No Immunizations Up to Date: Yes Travel Risk - International Travel Have you traveled outside of the country in past 3 weeks: No - Emerging Infectious Disease Are you exhibiting symptoms associated with any current EIDs: No - Review of Systems Constitutional: No Symptoms Eyes: No Symptoms Ears, Nose, & Throat: No Symptoms Respiratory: No Symptoms Cardiac: No Symptoms Abdominal/Gastrointestinal: No Symptoms Genitourinary Symptoms: No Symptoms Musculoskeletal: Other (Left flank pain) Skin: No Symptoms Psychological: No Symptoms Endocrine: No Symptoms Hematologic/Lymphatic: No Symptoms Immunological/Allergic: No Symptoms All Other Systems: Reviewed and Negative - Past Medical History Pertinent Past Medical History: No Neurological History: No Pertinent History ENT History: No Pertinent History Cardiac History: No Pertinent History Respiratory History: No Pertinent History Endocrine Medical History: No Pertinent History Musculoskeletal History: Fractures GI Medical History: No Pertinent History History: No Pertinent History Psycho-Social History: Depression Male Reproductive Disorders: No Pertinent History Other Medical History: fx rt wrist and forearm, casted - Past Surgical History Past Surgical History: No Neuro Surgical History: No Pertinent History Cardiac: No Pertinent History Respiratory: No Pertinent History Gastrointestinal: No Pertinent History Genitourinary: No Pertinent History Musculoskeletal: No Pertinent History Male Surgical History: No Pertinent History - Social History Smoking Status: Former smoker How long have you smoked: 29 yrs Exposure to second hand smoke: No Drug Use: none Patient Lives Alone: No - Social Determinants of Health Will the patient participate in the screening: Yes Do you worry about a steady place to live?: No Do you have any problems with any of the following?: No known problems In the past 12 months,have you had to go without utilities?: No Transportation Issues: No Has anyone in your support network made you feel unsafe?: No Have you or anyone in your house had to go without enough: No - Nursing Vital Signs Nursing Vital Signs: Initial Vital Signs Temperature 98.3 F 04/10/24 18:29 Pulse Rate 74 04/10/24 18:29 Respiratory Rate 16 04/10/24 18:29 Blood Pressure 135/94 04/10/24 18:29 O2 Sat by Pulse Oximetry 99 04/10/24 18:29 Pain Scale Pain Intensity [Left Back] 10 Pain Intensity 5 - Physical Exam General Appearance: no apparent distress, alert, anxiety Eye Exam: PERRL/EOMI, eyes nml inspection Ears, Nose, Throat Exam: normal ENT inspection, moist mucous membranes Neck Exam: normal inspection, non-tender, supple, full range of motion Respiratory Exam: normal breath sounds, lungs clear, airway intact, No chest tenderness, No respiratory distress Cardiovascular Exam: regular rate/rhythm, normal heart sounds, normal peripheral pulses Gastrointestinal/Abdomen Exam: soft, normal bowel sounds, No tenderness Rectal Exam: not done Back Exam: normal inspection, CVA tenderness (Left side), decreased range of motion, muscle spasm (Left paraspinous muscles lumbar level), No vertebral tenderness Extremity Exam: normal inspection, normal range of motion, pelvis stable Neurologic Exam: alert, oriented x 3, cooperative, 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 nml as tested, nml cerebellar function, nml station & gait, sensation nml Skin Exam: normal color, warm, dry Lymphatic Exam: No adenopathy SpO2 Interpretation: normal SpO2: 99 O2 Delivery: Room Air - Course Nursing assessment & vital signs reviewed: Yes Ordered Tests: Active Orders 24 hr Category Date Time Status ABDOMEN AND PELVIS W/0 CONTRAS [CT] Stat Exams 04/10/24 19:39 Taken UA W/RFX UR CULTURE Stat Lab 04/10/24 19:08 Completed Medication Summary Discontinued Medications Generic Name Dose Route Start Last Admin Trade Name Dannyq PRN Reason Stop Dose Admin Hydromorphone HCl 1 mg 04/10/24 19:38 04/10/24 20:01 Hydromorphone 1 Mg/1ml Inj IM 04/10/24 19:39 1 mg STAT ONE Administration Hydromorphone HCl Confirm 04/10/24 19:51 Hydromorphone 1 Mg/1ml Inj Administered 04/10/24 19:52 Dose 1 mg .ROUTE .STK-MED ONE Ondansetron HCl 4 mg 04/10/24 19:38 04/10/24 19:59 Zofran 4 Mg/Udtablet Orally Disintegrating PO 04/10/24 19:39 4 mg STAT ONE Administration Ondansetron HCl Confirm 04/10/24 19:51 Zofran 4 Mg/Udtablet Orally Disintegrating Administered 04/10/24 19:52 Dose 4 mg .ROUTE .STK-MED ONE Orphenadrine Citrate 60 mg 04/10/24 19:38 04/10/24 20:00 Orphenadrine Citrate 60 Mg/2 Ml Vial IM 04/10/24 19:39 60 mg STAT ONE Administration Orphenadrine Citrate Confirm 04/10/24 19:51 Orphenadrine Citrate 60 Mg/2 Ml Vial Administered 04/10/24 19:52 Dose 60 mg .ROUTE .STK-MED ONE Lab/Rad Data: Laboratory Results 04/10/24 Range/Units 19:08 Urine Color Yellow (Yellow) Urine Appearance Clear (Clear) Urine pH 5.0 (4.6-8.0) Ur Specific [place] 1.010 (1.005-1.030) Urine Protein Negative (Negative) Urine Glucose (UA) Negative (Negative) mg/dL Urine Ketones Negative (Negative) Urine Blood Negative (Negative) Urine Nitrite Negative (Negative) Urine Bilirubin Negative (Negative) Urine Urobilinogen 0.2 (0.2) mg/dL Ur Leukocyte Esterase Negative (Negative) U Hyaline Cast (Auto) NONE SEEN (0-2) /LPF Urine Microscopic RBC 0-2 (0-5) /HPF Urine Microscopic WBC 0-2 (0-5) /HPF Ur Epithelial Cells None Seen (None Seen) /HPF Urine Bacteria None Seen (None Seen) /HPF Urine Culture Reflexed NO (NO) - Progress Progress: improved, pain not gone completely Progress Note: 04/10/24 19:52 My medical decision making of the assignment of low to moderate complexity is based on review of the patient's past medical history, review of the patient's medication list, reviewed patient drug allergy list, history present illness and physical findings on examination. The workup in this patient includes urinalysis and CT scan of the abdomen pelvis without contrast. Differential diagnosis includes but is not limited to muscle skeletal pain, low back strain, pyelonephritis, ureterolithiasis 04/10/24 21:07 I interpreted the laboratory data results. Based on laboratory results there are no acute, emergent findings. CT scan of the abdomen pelvis without contrast was interpreted by the radiologist and I reviewed the impression. The impression states comparison film 11/12/2021. No acute findings. Small hiatal hernia. Counseled pt/family regarding: diagnosis, need for follow-up, rad results Medical Desision Making - Independent Historian Additional History obtained from: Spouse - Diagnostic Testing Diagnostic test were ordered, analyzed, and reviewed by me: Yes Radiological Interpretation: Reviewed by me, Teleradiologist Report - Risk of complications The pt has a mod risk of morbidity or mortality based on: Need for prescription drug management - Departure Departure Disposition: Home Clinical Impression: Low back pain, Pain on movement of skeletal muscle Condition: Stable Critical Care Time: No Referrals: EMERITA WELLS MD [Primary Care Provider] - Follow up/PCP as directed Additional Instructions: May add Tylenol to the pain regimen. Call your primary care provider tomorrow, 04/11/2024, to make arrangements for follow-up appointment for further evaluation and management. Prescriptions: Prednisone 10 mg [Deltasone 10 mg] 10 mg PO TID #12 tablet Orphenadrine Citrate 100 mg [Norflex 100 MG Tablet] 100 mg PO BID #10 tab
[2024-04-10] MEDS ORDERED: Norflex 60 MG/2 ML ONE (19:51)
[2024-04-10] MEDS ORDERED: ZOFRAN ODT 4 MG ONE (19:51)
[2024-04-10] MEDS ORDERED: Hydromorphone 1 mg/ml Injection ONE (19:51)
[2024-04-10] MEDS: ZOFRAN ODT 4 MG PO ONE (19:59)
[2024-04-10] MEDS: Norflex 60 MG/2 ML IM ONE (20:00)
[2024-04-10] MEDS: Hydromorphone 1 mg/ml Injection IM ONE (20:01)
[2024-04-10 21:11] VITALS: O2SAT 99
[2024-04-10 21:24] VITALS: BP 122/80
--- NOTE | 2024-04-11 08:38 | XRAY ---
Indication: Left flank pain. Multiple contiguous axial images obtained through the abdomen and pelvis without contrast. Comparison: November 11, 2021 Lung bases demonstrates minimal dependent atelectasis with tiny peripheral right lower lobe calcified granuloma. No infiltrate or effusion. Heart not enlarged. Stable small hiatal hernia. Noncontrasted stomach and bowel loops appear nonobstructed with normal appendix. There is now mild diffuse scattered colonic fecal debris including rectum. No free fluid/air. Remaining liver, gallbladder, pancreas, spleen, adrenal glands, kidneys, ureters, and bladder are unremarkable for noncontrast exam. Minimal aortic calcifications without AAA. Osseous structures intact. Impression: 1. New mild colonic fecal stasis. 2. Chronic findings including small hiatal hernia, arteriosclerotic disease, and old granulomatous disease. 3. No acute findings on this noncontrast exam.
== END 2024-04-10 21:25 | disposition home or self-care (01) ==
LOC: ED 18:15
DX: M54.50 Low back pain, unspecified (principal); R10.9 Unspecified abdominal pain; Z79.52 Long term (current) use of systemic steroids; Z79.899 Other long term (current) drug therapy
CPT/HCPCS: 74176; 81001; 96372; 99284; J1171; J2360; Q0162